=== PATIENT | male | born 1950 | race Two or more races ===

== ENCOUNTER 2020-02-12 12:34 | Emergency (ER) | payer MEDICARE, MEDICAID ==
[~2020-02-12] VITALS: Ht 157.5 cm; Wt 95.3 kg
[~2020-02-12 12:34] MED LIST: ALPR0.5T7 PO; GABA300C10 PO; HYDR-4833 PO
[2020-02-12 13:18] VITALS: BP 157/59
[2020-02-12] MEDS ORDERED: HYDROcodone-ACET 5/325MG TAB PO ONE (13:45)
== END 2020-02-12 14:34 | disposition home or self-care (01) ==
LOC: ER 12:34
DX: S42.291A Other displaced fracture of upper end of right humerus, initial encounter for closed fracture (principal); M13.841 Other specified arthritis, right hand; E11.22 Type 2 diabetes mellitus with diabetic chronic kidney disease; I12.0 Hypertensive chronic kidney disease with stage 5 chronic kidney disease or end stage renal disease; N18.6 End stage renal disease; E78.5 Hyperlipidemia, unspecified; W01.0XXA Fall on same level from slipping, tripping and stumbling without subsequent striking against object, initial encounter; Y93.89 Activity, other specified; Y92.89 Other specified places as the place of occurrence of the external cause; Y99.8 Other external cause status
CPT/HCPCS: 29105; 73060; 73130

== ENCOUNTER 2020-03-20 12:41 | Inpatient (IN) | payer MEDICARE, MEDICAID ==
[~2020-03-20] VITALS: Ht 175.3 cm; Wt 104.8 kg
[2020-03-20] MEDS ORDERED: cloNIDine HCL 0.1 MG TAB PO ONE (13:30)
[2020-03-20] MEDS ORDERED: ONDANSETRON HCL 4 MG/2 ML VIAL IV ONE (13:45)
[2020-03-20] MEDS ORDERED: MORPHINE SULFATE 4 MG/ML SYR/VIAL IV ONE (13:45)
[2020-03-20] MEDS ORDERED: hydrALAZINE HCL 20 MG/ML VL IV ONE (13:45)
[2020-03-20 13:55] LABS: Hemoglobin 11.3 g/dL (13.5-17.5); Mean Corpuscular Hemoglobin 31.5 pg (28.0-32.0); Mean Corpuscular Hgb Conc. 32.3 g/dL (32.0-36.0); Mean Corpuscular Volume 97.4 fL (80.0-100.0); Platelet Count (auto) 193 10^3/uL (140-450); Red Cell Distribution Width 19.4 % (11.8-14.3); White Blood Cell 4.4 10^3/uL (4.4-10.8)
[2020-03-20 14:03] LABS: Basophils % (manual) 0 (0.0-2.0); Blast Cells 0; Metamyelocytes % 0; Myelocytes % 0; Promyelocytes % 0; Reactive Lymphocytes 0
[2020-03-20 14:15] LABS: Albumin 3.7 g/dL (3.4-5.0); Calcium 7.6 mg/dL (8.5-10.1)
[2020-03-20 14:19] LABS: Bilirubin, Total 0.7 mg/dL (0.2-1.0); Total Protein 6.9 g/dL (6.4-8.2)
[2020-03-20 14:28] LABS: Band Neutrophils % (manual) 2; Eosinophils % (manual) 3 (0-7); Lymphocytes % (manual) 18 (10.0-50.0); Monocytes % (manual) 6 (0-12)
[2020-03-20 14:35] LABS: BUN/Creatinine Ratio 10.7
[2020-03-20 14:44] LABS: Potassium 7.3 mmol/L (3.5-5.1)
[2020-03-20] MEDS ORDERED: InsuLIN REG 1unit/0.01ml Soln (100units/ml) IV ONE (15:00)
[2020-03-20] MEDS ORDERED: DEXTROSE (50%) 50ML SYRG IV ONE (15:00)
[2020-03-20] MEDS ORDERED: SODIUM BICARBONATE 8.4% INJ 50ML SYRINGE IV ONE (15:00)
[2020-03-20] MEDS ORDERED: SODIUM ZIRCONIUM CYCL 10 GM PAK PO ONE (15:00)
[2020-03-20] MEDS ORDERED: ALBUTEROL SULF 2.5 MG/0.5ML(0.5%) NEB SOLN NEB ONE (15:00)
[2020-03-20] MEDS ORDERED: CALCIUM GLUC 4.65meq/50ml D5AE 50 ML IV ONE (15:00)
[2020-03-20] MEDS ORDERED: NITROGLYCERIN 0.4 MG SL TAB SL PRN (16:00)
[2020-03-20] MEDS ORDERED: ONDANSETRON HCL 4 MG/2 ML VIAL IV PRN (16:00)
[2020-03-20] MEDS ORDERED: MORPHINE SULF INJ 2 MG/ML SYRINGE 1ML IV PRN ×2 (16:00)
[2020-03-20] MEDS ORDERED: FUROSEMIDE 40 MG/4 ML VIAL IV SCH ×2 (17:00→18:00)
[2020-03-20] MEDS ORDERED: SODIUM ZIRCONIUM CYCL 10 GM PAK PO SCH (17:00)
[2020-03-20] MEDS ORDERED: SODIUM CHL 0.9% 1000 ML BAG XX ONE ×2 (17:00→19:30)
[2020-03-20] MEDS: SODIUM ZIRCONIUM CYCL 10 GM PAK PO SCH (23:24)
[2020-03-21] MEDS ORDERED: PNEUMOCOCCAL VACC POLYS 25 MCG/0.5 ML VIAL IM ONE (01:30)
[2020-03-21] MEDS ORDERED: ACETAMINOPHEN 500 MG TAB PO PRN (02:45)
[2020-03-21] MEDS ORDERED: diphenhdrAMINE HCL 25 MG CAP PO PRN (02:45)
[2020-03-21] MEDS: SODIUM ZIRCONIUM CYCL 10 GM PAK PO SCH ×2 (04:30→14:38)
[2020-03-21 05:30] VITALS: BP 154/85
[2020-03-21] MEDS ORDERED: FUROSEMIDE 40 MG/4 ML VIAL IV SCH (06:00)
[2020-03-21 09:03] VITALS: BP 141/55
[2020-03-21 09:55] LABS: Albumin 3.1 g/dL (3.4-5.0); Calcium 7.4 mg/dL (8.5-10.1); Potassium 5.5 mmol/L (3.5-5.1)
[2020-03-21 09:57] LABS: BUN/Creatinine Ratio 9.2
[2020-03-21 10:00] LABS: Bilirubin, Total 0.9 mg/dL (0.2-1.0); Total Protein 6.4 g/dL (6.4-8.2)
[2020-03-21] MEDS ORDERED: SEVELAMER 800 MG TAB PO SCH (12:00)
[2020-03-21 12:45] VITALS: BP 142/52
[2020-03-21 13:26] LABS: Hematocrit 33.4 % (41.0-53.0); Mean Corpuscular Volume 96.9 fL (80.0-100.0); Platelet Count (auto) 169 10^3/uL (140-450); Red Blood Cells 3.45 10^6/uL (4.5-5.90); Red Cell Distribution Width 19.7 % (11.8-14.3); White Blood Cell 3.9 10^3/uL (4.4-10.8)
[2020-03-21 13:27] LABS: Basophils % (manual) 0 (0.0-2.0); Myelocytes % 0
[2020-03-21 13:28] LABS: Blast Cells 0; Promyelocytes % 0; Reactive Lymphocytes 0
[2020-03-21 13:41] LABS: Band Neutrophils % (manual) 1; Eosinophils % (manual) 1 (0-7); Lymphocytes % (manual) 21 (10.0-50.0); Metamyelocytes % 1; Monocytes % (manual) 12 (0-12)
[2020-03-21 17:00] VITALS: BP 155/64
[2020-03-22] MEDS ORDERED: SODIUM CHL 0.9% 1000 ML BAG XX ONE (07:00)
== END 2020-03-21 18:12 | disposition home or self-care (01) | DRG 640 ==
LOC: ER 12:41 → TELE 12:42 → TELE-WESTW 23:33
PROVIDERS: ADMIT Internal Medicine; ATTEND Internal Medicine
PROC: 5A1D70Z Performance of Urinary Filtration, Intermittent, Less than 6 Hours Per Day (ICD-10-PCS; principal; 2020-03-20)
DX: E87.70 Fluid overload, unspecified (principal); N18.6 End stage renal disease; I12.0 Hypertensive chronic kidney disease with stage 5 chronic kidney disease or end stage renal disease; E87.5 Hyperkalemia; Z99.2 Dependence on renal dialysis; D63.1 Anemia in chronic kidney disease; E11.22 Type 2 diabetes mellitus with diabetic chronic kidney disease; E78.5 Hyperlipidemia, unspecified; E83.39 Other disorders of phosphorus metabolism; E66.9 Obesity, unspecified; Z82.49 Family history of ischemic heart disease and other diseases of the circulatory system; Z83.3 Family history of diabetes mellitus; Z68.34 Body mass index [BMI] 34.0-34.9, adult
CPT/HCPCS: 36415; 71045; 73030; 80053; 82306; 82962; 83880; 83970; 84100; 84132; 84484; 85007; 85027; 87081; 90935; 93005; 93925; 94640; G0378; J0610; J1642; J1815; J2405

== ENCOUNTER 2020-05-23 11:22 | Inpatient (IN) | payer MEDICARE, MEDICAID ==
[~2020-05-23] VITALS: Ht 175.3 cm; Wt 83.9 kg
[2020-05-23] MEDS ORDERED: CLINDAMYCIN 600MG IV 50 ML IV ONE (11:45)
[2020-05-23 11:53] LABS: Basophils # (auto) 0 10 ^3/uL (0-0.2); Basophils % (auto) 0.4 % (0.0-2.0); Eosinophils # (auto) 0.1 10 ^3/uL (0-0.8); Eosinophils % (auto) 0.7 % (0.0-7.0); Hematocrit 36.5 % (41.0-53.0); Hemoglobin 11.9 g/dL (13.5-17.5); Lymphocytes # (auto) 0.6 10 ^3/uL (0.4-5.4); Lymphocytes % (auto) 6.5 % (10.0-50.0); Mean Corpuscular Hemoglobin 31.7 pg (28.0-32.0); Mean Corpuscular Hgb Conc. 32.6 g/dL (32.0-36.0); Monocytes % (auto) 11.2 % (0.0-12.0); Neutrophils # (auto) 7.3 10 ^3/uL (1.6-8.6); Neutrophils % (auto) 81.2 % (37.0-80.0); Platelet Count (auto) 279 10^3/uL (140-450); Red Blood Cells 3.77 10^6/uL (4.5-5.90); Red Cell Distribution Width 15.3 % (11.8-14.3)
[2020-05-23 12:07] LABS: Albumin 2.5 g/dL (3.4-5.0); Calcium 7.9 mg/dL (8.5-10.1); INR 1.14 (0.9-1.15); Partial Thromboplastin Time 27.5 sec (23.0-31.2); Potassium 4.5 mmol/L (3.5-5.1)
[2020-05-23 12:11] LABS: BUN/Creatinine Ratio 5.4; Bilirubin, Total 0.6 mg/dL (0.2-1.0); Total Protein 6.8 g/dL (6.4-8.2)
[2020-05-23] MEDS ORDERED: MORPHINE SULF INJ 2 MG/ML SYRINGE 1ML IV PRN ×2 (13:00→13:15)
[2020-05-23] MEDS ORDERED: NITROGLYCERIN 0.4 MG SL TAB SL PRN (13:00)
[2020-05-23] MEDS ORDERED: SODIUM CHLORIDE 0.9% 1,000 ML IV SCH (13:15)
[2020-05-23] MEDS ORDERED: DOCUSATE SOD 100 MG CAP PO PRN (13:15)
[2020-05-23] MEDS ORDERED: ENOXAPARIN SOD 30 MG/0.3 ML SYRINGE SC ONE (13:45)
[2020-05-23] MEDS ORDERED: PARO10TA93 PO (14:27)
[2020-05-23] MEDS ORDERED: DOXY100C2 PO (14:27)
[2020-05-23] MEDS ORDERED: DIPH2.5T73 PO (14:27)
[2020-05-23] MEDS ORDERED: SEVE800T8 PO (14:33)
[2020-05-23] MEDS ORDERED: TRAM50TA2 PO (14:44)
[2020-05-23] MEDS ORDERED: CLON0.2T PO ×2 (14:46→14:47)
[2020-05-23] MEDS ORDERED: GABAPENTIN 300 MG CAP PO SCH (22:00)
[2020-05-24] VITALS: BP 111/56
--- NOTE | 2020-05-24 03:00 | NUR ---
paged hospitalist informing regarding patient's AMA
--- NOTE | 2020-05-24 03:05 | NUR ---
the patient went AMA stated he wanna go home and he does not want to get treatment anymore. Educated on the risk of going home without getting proper treatment, He refused the covid swab anymore and doesnt want to be in the floor in the first place. He signed the AMA form and wheeled him down outside the ER lobby. We called his son Ady and gonna pick him up in 1/2hr. CN is aware
--- NOTE | 2020-05-24 03:29 | NUR ---
spoke to household appliance installer regarding patient's AMA
[2020-05-24] MEDS ORDERED: PANTOPRAZOLE 40 MG/10 ML VIAL INJ IV SCH (10:00)
[2020-05-24] MEDS ORDERED: ALPRAZolam 0.5 MG TAB PO SCH (10:00)
== END 2020-05-24 02:45 | disposition left against medical advice (07) | DRG 638 ==
LOC: ER 11:22 → OVERFLOW 11:23 → EAST 05-24 01:00
DX: E11.69 Type 2 diabetes mellitus with other specified complication (principal); E87.1 Hypo-osmolality and hyponatremia; I12.0 Hypertensive chronic kidney disease with stage 5 chronic kidney disease or end stage renal disease; L03.115 Cellulitis of right lower limb; M86.8X7 Other osteomyelitis, ankle and foot; E11.22 Type 2 diabetes mellitus with diabetic chronic kidney disease; E11.65 Type 2 diabetes mellitus with hyperglycemia; Z20.828 Contact with and (suspected) exposure to other viral communicable diseases; Z53.29 Procedure and treatment not carried out because of patient's decision for other reasons; D64.9 Anemia, unspecified; E87.8 Other disorders of electrolyte and fluid balance, not elsewhere classified; F41.9 Anxiety disorder, unspecified; N18.6 End stage renal disease; Z82.49 Family history of ischemic heart disease and other diseases of the circulatory system; Z83.3 Family history of diabetes mellitus; Z99.2 Dependence on renal dialysis
CPT/HCPCS: 36415; 71045; 73700; 80053; 85025; 85610; 85652; 85730; 87426; 93005; G0378; J3490

== ENCOUNTER 2020-05-24 19:57 | Inpatient (IN) | payer MEDICARE, MEDICAID ==
[~2020-05-24] VITALS: Ht 177.8 cm; Wt 93.7 kg
[~2020-05-24 19:57] MED LIST changes: -ALPR0.5T7 PO; +CLON0.2T PO; +DIPH2.5T73 PO; +DOXY100C2 PO; -HYDR-4833 PO; +PARO10TA93 PO; +SEVE800T8 PO; +TRAM50TA2 PO
[2020-05-24] MEDS ORDERED: ACETAMINOPHEN 325 MG TAB PO ONE (20:30)
[2020-05-24] MEDS ORDERED: ONDANSETRON HCL 4 MG/2 ML VIAL IV ONE (21:00)
[2020-05-24] MEDS ORDERED: MORPHINE SULFATE 4 MG/ML SYR/VIAL IV ONE (21:00)
[2020-05-24 21:02] LABS: Basophils # (auto) 0.1 10 ^3/uL (0-0.2); Basophils % (auto) 0.7 % (0.0-2.0); Eosinophils # (auto) 0 10 ^3/uL (0-0.8); Eosinophils % (auto) 0.3 % (0.0-7.0); Hematocrit 36.6 % (41.0-53.0); Hemoglobin 12.1 g/dL (13.5-17.5); Lymphocytes # (auto) 0.5 10 ^3/uL (0.4-5.4); Lymphocytes % (auto) 4.1 % (10.0-50.0); Mean Corpuscular Hemoglobin 31.8 pg (28.0-32.0); Mean Corpuscular Volume 96.2 fL (80.0-100.0); Monocytes # (auto) 1.4 10 ^3/uL (0-1.3); Monocytes % (auto) 10.3 % (0.0-12.0); Neutrophils # (auto) 11.3 10 ^3/uL (1.6-8.6); Neutrophils % (auto) 84.6 % (37.0-80.0); Platelet Count (auto) 284 10^3/uL (140-450); Red Cell Distribution Width 15.5 % (11.8-14.3); White Blood Cell 13.3 10^3/uL (4.4-10.8)
[2020-05-24 21:17] LABS: Albumin 2.5 g/dL (3.4-5.0); Calcium 8.1 mg/dL (8.5-10.1); Potassium 5.1 mmol/L (3.5-5.1)
[2020-05-24 21:23] LABS: BUN/Creatinine Ratio 6.9; Bilirubin, Total 0.6 mg/dL (0.2-1.0)
[2020-05-24] MEDS ORDERED: VANCOMYCIN 1GM/250ML 250 ML IV ONE (23:00)
[2020-05-24] MEDS ORDERED: cefTRIAXone 1GM/50ML D5W 50 ML IV ONE (23:00)
[2020-05-25] MEDS ORDERED: VANCOMYCIN PER PHARMACY 0 MG IV SCH (02:30)
[2020-05-25] MEDS ORDERED: DEXTROSE (50%) 50ML SYRG IV PRN (02:30)
[2020-05-25] MEDS ORDERED: ONDANSETRON HCL 4 MG/2 ML VIAL IV PRN (02:30)
[2020-05-25] MEDS ORDERED: TEMAZEPAM 15 MG CAP PO PRN (02:30)
[2020-05-25] MEDS: PIPERACILLIN-TAZOB 2.25GM 50 ML IV SCH ×3 (06:21→21:50)
[2020-05-25] MEDS: InsuLIN REG 1unit/0.01ml Soln (100units/ml) SC SCH ×4 (07:00→21:49)
[2020-05-25] MEDS: ACCU-CHEK COMFORT CURVE STRIP VI SCH ×4 (07:13→21:49)
[2020-05-25] MEDS: SEVELAMER 800 MG TAB PO SCH ×3 (08:20→18:24)
[2020-05-25] MEDS: cloNIDine HCL 0.1 MG TAB PO SCH ×2 (08:20→09:42)
[2020-05-25] MEDS: PANTOPRAZOLE 40 MG TAB PO SCH (08:20)
--- NOTE | 2020-05-25 14:55 | NUR ---
MS admit from ER JAN FARRELL admitted to tele/MS after SBAR received. AAOX4, breathing even nonlabored, S1, S2, karlos lungs clear to auscultation. Able to walk with standby assist. Right fifth toe cellulitis. Wound picture taken. Patient oriented to Marcos Marinelli RN primary RN, unit, room, bed, and unit policies regarding patient care and visiting hours. Patient weighed by bedscale and encouraged to call if they need something. All questions and concerns addressed, patient verbalized understanding. Bed locked in the lowest position, call light within easy reach, will continue care.
[2020-05-25 15:02] VITALS: BP 150/45
[2020-05-25 17:00] VITALS: BP 129/41
[2020-05-25] MEDS ORDERED: VANCOMYCIN 1GM/250ML 250 ML IV ONE (17:00)
[2020-05-25] MEDS ORDERED: VANCOMYCIN 500 MG in D5W 5% 100 ML IV ONE (17:00)
--- NOTE | 2020-05-25 19:30 | NUR ---
Opening Shift Note Assumed care of patient, awake and alert x4. No S/S of distress/SOB or pain. Dressing to right foot is C/D/I. Call light is within reach, side rails up x2, bed is in the lowest position. Instructed on POC and to call for assist PRN, will continue to monitor for changes Q1hr and PRN.
[2020-05-25 21:27] VITALS: BP 120/43
[2020-05-26 05:00] VITALS: BP 133/72
[2020-05-26 06:06] LABS: Basophils # (auto) 0.1 10 ^3/uL (0-0.2); Basophils % (auto) 0.5 % (0.0-2.0); Eosinophils # (auto) 0.2 10 ^3/uL (0-0.8); Eosinophils % (auto) 1.3 % (0.0-7.0); Hematocrit 33.6 % (41.0-53.0); Hemoglobin 11.1 g/dL (13.5-17.5); Lymphocytes # (auto) 0.8 10 ^3/uL (0.4-5.4); Lymphocytes % (auto) 5.9 % (10.0-50.0); Mean Corpuscular Hemoglobin 31.5 pg (28.0-32.0); Mean Corpuscular Hgb Conc. 33.1 g/dL (32.0-36.0); Mean Corpuscular Volume 95.3 fL (80.0-100.0); Monocytes # (auto) 1.6 10 ^3/uL (0-1.3); Monocytes % (auto) 10.8 % (0.0-12.0); Neutrophils # (auto) 11.8 10 ^3/uL (1.6-8.6); Neutrophils % (auto) 81.5 % (37.0-80.0); Nucleated Red Blood Cells % 0.1 %; Platelet Count (auto) 317 10^3/uL (140-450); Red Blood Cells 3.53 10^6/uL (4.5-5.90); Red Cell Distribution Width 15.4 % (11.8-14.3); White Blood Cell 14.5 10^3/uL (4.4-10.8)
[2020-05-26 06:25] LABS: BUN/Creatinine Ratio 7.7; Calcium 7.7 mg/dL (8.5-10.1); Potassium 5.1 mmol/L (3.5-5.1)
--- NOTE | 2020-05-26 06:35 | NUR ---
Critical lab values received Bun/Creatinine Bun- 82 Creatinine- 10.6 Hospitalist Kumar ROTH made aware of lab results at 06:45, no new orders received, will continue to monitor.
[2020-05-26] MEDS: PIPERACILLIN-TAZOB 2.25GM 50 ML IV SCH ×3 (06:40→22:29)
[2020-05-26] MEDS: InsuLIN REG 1unit/0.01ml Soln (100units/ml) SC SCH ×4 (06:40→21:29)
[2020-05-26] MEDS: ACCU-CHEK COMFORT CURVE STRIP VI SCH ×4 (06:40→21:12)
--- NOTE | 2020-05-26 06:41 | NUR ---
MRSA nares collected and sent to lab via bullet system.
[2020-05-26] MEDS ORDERED: SODIUM CHL 0.9% 1000 ML BAG XX ONE (07:30)
--- NOTE | 2020-05-26 07:30 | NUR ---
Opening Shift Note Assuming care of patient at this time. Patient is awake and alert. Patient does complain of pain to his right foot, 6/10. Will medicate according to doctor's orders. Patient shows no signs or symptoms of distress or shortness of breath. Bed is locked and lowered with side rails up x2. Instructed patient on the plan of care for today and to call for assistance as needed. Call light within reach. Will continue to round hourly and as needed.
[2020-05-26] MEDS: SEVELAMER 800 MG TAB PO SCH ×3 (08:32→17:40)
[2020-05-26 08:52] LABS: Urine Bacteria FEW /hpf (None Seen); Urine Blood TRACE /uL (Negative); Urine Specific Gravity 1.017 (1.001-1.035); Urine WBC 5 /hpf (0 - 3)
[2020-05-26] MEDS: PANTOPRAZOLE 40 MG TAB PO SCH (10:31)
[2020-05-26] MEDS: cloNIDine HCL 0.1 MG TAB PO SCH (10:31)
--- NOTE | 2020-05-26 10:50 | NUR ---
Podiatry Podiatry MD, Dr. Price, at nurses' station. aware that patient will be going to have lower extremity angiogram later today. Surgery will be scheduled for Friday morning with Dr. Price at approximately 0800.
--- NOTE | 2020-05-26 11:43 | NUR ---
WOUND CARE NOTE: WOUND CARE IN TO SEE PATIENT PER WOUND CARE REQUEST. PATIENT ADMITTED TO [facility] FOR RIGHT FOOT OSTEOMYELITIS WITH CELLULITIS. BEDSIDE NURSE NOTED SKIN INTEGRITY ISSUE UPON ADMISSION. PHOTOGRAPH TAKEN AT THAT TIME. PATIENT HAS MULTIPLE WOUNDS TO RIGHT FOOT 5TH TOE. TOE CLEANSED WITH BETADINE AND LEFT OPEN TO AIR. PATIENT SCHEDULED FOR AMPUTATION OF DIGIT WITH PRINTING PRESS OPERATOR DR. WALL ON FRIDAY (05/28/20). RECOMMEND: CLEANSE TOE WITH BETADINE BID/PRN UNTIL SURGERY DATE. REDISTRIBUTE PRESSURE UTILIZING PILLOWS AND WEDGES. SKIN/WOUND CARE PLAN. CONTINUED MONITORING BY WOUND CARE TEAM. Addendum: 05/26/20 at 1514 by REGINA RESENDEZ RN RN Amended: Links added.
[2020-05-26 12:38] VITALS: BP 119/58
[2020-05-26] MEDS ORDERED: IOHEXOL 350 MG/ML 100ML IJ ONE (13:26)
[2020-05-26 13:27] LABS: INR 1.13 (0.9-1.15)
[2020-05-26] MEDS ORDERED: LIDOCAINE 2%HCL (LOCAL ANESTH.) INJ 20ML MDV ONE (13:27)
[2020-05-26] MEDS ORDERED: SODIUM CHL 0.9% 0 ML ONE (13:39)
[2020-05-26] MEDS ORDERED: fentaNYL CITRATE 100 MCG/2 ML VL ONE (13:39)
[2020-05-26] MEDS ORDERED: ANGIOMAX 250 MG VIAL IV ONE (13:39)
[2020-05-26] MEDS ORDERED: MIDAZOLAM HCL 1MG/1ML-2 ML VIAL ONE (13:39)
--- NOTE | 2020-05-26 15:20 | NUR ---
Back on Unit Patient has returned from lab rn at this time. Patient is aware of up time. Instructed patient to stay in bed until up time.
--- NOTE | 2020-05-26 15:25 | NUR ---
Site Patient's site to the left groin is soft and tender to touch. Dressing is clean, dry, and intact.
--- NOTE | 2020-05-26 16:00 | NUR ---
Dialysis sewing machine operator plastic zipper at bedside. Dialysis to start shortly. Notified sewing machine operator plastic zipper that patient may not get up until 1645.
[2020-05-26 16:20] VITALS: BP 141/76
--- NOTE | 2020-05-26 16:30 | NUR ---
Call to pharmacy Call to pharmacy at this time. Patient has just begun dialysis. Vancomycin will need to be rescheduled. Pharmacists acknowledges and will reschedule accordingly.
[2020-05-26] MEDS ORDERED: VANCOMYCIN 500 MG in D5W 5% 100 ML IV ONE (17:00)
--- NOTE | 2020-05-26 18:21 | NUR ---
Wound Care Wound care done to patient's right foot/toe at this time according to doctor's orders. Patient tolerated well. Patient still undergoing dialysis.
--- NOTE | 2020-05-26 19:22 | NUR ---
Closing Shift Note Patient resting in bed. Dialysis still in progress. No distress noted. Report given. Will endorse care to the police shift commander RN.
--- NOTE | 2020-05-26 19:45 | NUR ---
WOUNDCARE APPLIED BETADINE TO RIGHT 5TH TOE AND RIGHT GREAT TOE AND LEFT CARLOS. INFORMED PATIENT THAT IS THE WOUNDCARE TREATMENT ORDERED PER DOCTOR.
[2020-05-26] MEDS ORDERED: VANCOMYCIN 1GM/250ML 250 ML IV ONE (20:00)
[2020-05-26] MEDS ORDERED: EPOETIN ALFA 10,000 UNIT/1 ML VIAL SC ONE (21:00)
[2020-05-26] MEDS: ACETAMINOPHEN 325 MG TAB PO PRN (21:13)
[2020-05-26 21:55] VITALS: BP 129/68
--- NOTE | 2020-05-26 22:17 | NUR ---
WOUND CARE PATIENT UP OUT OF BED AND USING URINAL. PATIENT WOUND TO RIGHT FOOT 5TH DIGIT OPEN AND DRAINING. APPLIED BETADINE COVERED WITH OPTIFOAM DRESSING WRAPPED IN KERLIX AND STOCKINETTE TO SECURE DRESSING.
[2020-05-27 05:07] VITALS: BP 143/70
[2020-05-27] MEDS: PIPERACILLIN-TAZOB 2.25GM 50 ML IV SCH ×3 (05:45→22:12)
[2020-05-27] MEDS: InsuLIN REG 1unit/0.01ml Soln (100units/ml) SC SCH ×4 (06:46→22:44)
[2020-05-27] MEDS: ACCU-CHEK COMFORT CURVE STRIP VI SCH ×4 (06:46→22:44)
[2020-05-27 07:47] LABS: Basophils # (auto) 0.1 10 ^3/uL (0-0.2); Basophils % (auto) 0.5 % (0.0-2.0); Eosinophils # (auto) 0.2 10 ^3/uL (0-0.8); Eosinophils % (auto) 1.4 % (0.0-7.0); Hematocrit 34.7 % (41.0-53.0); Hemoglobin 11.4 g/dL (13.5-17.5); Lymphocytes # (auto) 0.7 10 ^3/uL (0.4-5.4); Lymphocytes % (auto) 5.5 % (10.0-50.0); Mean Corpuscular Hemoglobin 31.5 pg (28.0-32.0); Mean Corpuscular Hgb Conc. 32.8 g/dL (32.0-36.0); Monocytes # (auto) 1.4 10 ^3/uL (0-1.3); Monocytes % (auto) 11.7 % (0.0-12.0); Neutrophils # (auto) 9.9 10 ^3/uL (1.6-8.6); Neutrophils % (auto) 80.9 % (37.0-80.0); Platelet Count (auto) 332 10^3/uL (140-450); Red Blood Cells 3.61 10^6/uL (4.5-5.90); Red Cell Distribution Width 14.9 % (11.8-14.3); White Blood Cell 12.2 10^3/uL (4.4-10.8)
[2020-05-27 08:04] LABS: BUN/Creatinine Ratio 6.8; Calcium 8.3 mg/dL (8.5-10.1); Potassium 4.2 mmol/L (3.5-5.1)
[2020-05-27] MEDS: SEVELAMER 800 MG TAB PO SCH ×3 (08:25→17:34)
[2020-05-27 09:00] VITALS: BP 125/69
[2020-05-27] MEDS: cloNIDine HCL 0.1 MG TAB PO SCH (09:54)
[2020-05-27] MEDS: PANTOPRAZOLE 40 MG TAB PO SCH (09:54)
[2020-05-27 13:00] VITALS: BP 106/49
--- NOTE | 2020-05-27 14:31 | NUR ---
Nutrition Assessment Note please see attached link for complete assessment Est Energy needs BW 91 [id number] kcals (27-30kcal/kgBW), Est Protein needs: 109-118 gms/day (1.2-1.3 gm/kgBW r/t HD). Will continue to monitor and reassess prn. Addendum: 05/27/20 at [address] Amended: Links added.
[2020-05-27 17:00] VITALS: BP 138/64
[2020-05-27] MEDS: ACETAMINOPHEN 325 MG TAB PO PRN (17:35)
--- NOTE | 2020-05-27 19:25 | NUR ---
Received report from the Day Shift RN. Initial assessment done.
--- NOTE | 2020-05-27 20:00 | NUR ---
Complete assessment done.
[2020-05-27 22:00] VITALS: BP 136/57
--- NOTE | 2020-05-27 22:12 | NUR ---
Zosyn IV antibiotic given/administered @ this time. Pt. made aware of the use and benefits of this antibiotic. Pt. verbalized understanding.
--- NOTE | 2020-05-27 22:44 | NUR ---
Accucheck taken and result is 118 , No coverage for Regular Human Insulin needed. Pt. made awaree to be on NPO post MN for the Surgery of the Fifth Right Toe and its metatarsal head with consent signed placed in the pt.'s chart. Pt. given snacks @ like sandwich and jello. Pt. instructed that its still okay to eat before midnight and then will be on NPO Post MN.
--- NOTE | 2020-05-28 00:10 | NUR ---
Charge Nurse Charlene informed/notified assigned RN. Jha that pt. needs Covid Swab test before surgery today. Called and notified Lab. Personnel to send Covid Swab kit to test pt. through nasal. Lab. Personnel tube the Swab test kit @ the Central Wing.
--- NOTE | 2020-05-28 01:00 | NUR ---
Pt. provided explanation that the hospital needed the Covid Swab test in which the sample to be taken from the nasal area. persuaded and encouraged pt. to have the sample taken from his nose. Pt. refused to have the Covid test done. Pt. refused 3 times already and still refused his sample to be collected even persuaded 3 times. Will follow-up this procedure in some other time during the shift. Pt. kept safe and school crossing guard bed. Encouraged pt. to go back to sleep and pt. returned to sleep in a while. Call-light @ the bedside within reach and keep room environment quiet or free from unecessary noise.
--- NOTE | 2020-05-28 02:00 | NUR ---
Pt. calm, quiet and sleeping undisturbed. No s/s of pain or discomfort. Kept pt. NPO for Right Toe Amputation procedure
--- NOTE | 2020-05-28 04:00 | NUR ---
Pt. asleep. Maintained a safe and quiet environment. Pt. still on NPO.
[2020-05-28 05:00] VITALS: BP 125/61
--- NOTE | 2020-05-28 05:00 | NUR ---
Pre-op checklist started by assigned RN. Jha. See Pt.'s Chart.
[2020-05-28] MEDS: PIPERACILLIN-TAZOB 2.25GM 50 ML IV SCH ×3 (06:02→21:53)
--- NOTE | 2020-05-28 06:02 | NUR ---
Zosyn IV antibiotic is due and was administered @ this time. Pt. give explanation of the use of IV med. Pt. Verbalized understanding. Encouraged pt. to have the Covid swab test from his nasal, pt. still refused this procedure. Will retry the next time. Signed: 05/28/20 at 0728 by DERIC SANCHEZ RN RN
--- NOTE | 2020-05-28 06:43 | NUR ---
Accucheck taken with result of BS = 106 , No coverage for Regular human Insulin needed. Pt. still refused to have the Covid swab test from his nose.
[2020-05-28] MEDS: ACCU-CHEK COMFORT CURVE STRIP VI SCH ×4 (06:51→22:00)
[2020-05-28] MEDS: InsuLIN REG 1unit/0.01ml Soln (100units/ml) SC SCH ×4 (06:51→22:00)
[2020-05-28 07:06] LABS: Basophils # (auto) 0.1 10 ^3/uL (0-0.2); Basophils % (auto) 0.6 % (0.0-2.0); Eosinophils # (auto) 0.2 10 ^3/uL (0-0.8); Eosinophils % (auto) 1.2 % (0.0-7.0); Hematocrit 33.9 % (41.0-53.0); Hemoglobin 11.5 g/dL (13.5-17.5); Lymphocytes # (auto) 0.8 10 ^3/uL (0.4-5.4); Lymphocytes % (auto) 5.6 % (10.0-50.0); Mean Corpuscular Hgb Conc. 33.8 g/dL (32.0-36.0); Mean Corpuscular Volume 94.8 fL (80.0-100.0); Monocytes # (auto) 1.6 10 ^3/uL (0-1.3); Monocytes % (auto) 12.1 % (0.0-12.0); Neutrophils # (auto) 10.9 10 ^3/uL (1.6-8.6); Neutrophils % (auto) 80.5 % (37.0-80.0); Platelet Count (auto) 342 10^3/uL (140-450); Red Blood Cells 3.58 10^6/uL (4.5-5.90); Red Cell Distribution Width 15.3 % (11.8-14.3); White Blood Cell 13.5 10^3/uL (4.4-10.8)
[2020-05-28 07:27] LABS: BUN/Creatinine Ratio 6.8; Calcium 8.4 mg/dL (8.5-10.1); Potassium 4.8 mmol/L (3.5-5.1)
[2020-05-28 07:40] LABS: INR 1.12 (0.9-1.15); Partial Thromboplastin Time 25.7 sec (23.0-31.2)
[2020-05-28] MEDS: SEVELAMER 800 MG TAB PO SCH ×3 (08:00→17:47)
[2020-05-28] MEDS ORDERED: ceFAZolin 1GM VL ONE (08:30)
[2020-05-28] MEDS ORDERED: ROPIVACAINE 0.5% (5MG/ML) 20ML AMPULE IJ ONE (08:31)
--- NOTE | 2020-05-28 08:48 | NUR ---
COVID 19 ANTIGEN EUNICE SWAB WALKED DOWN TO LAB PER ORDER.
[2020-05-28 09:00] VITALS: BP 139/83
--- NOTE | 2020-05-28 09:30 | NUR ---
IV insertion IV access obtained, via clean sterile technique by inserting 22 gauge catheter at RIGHT AC after 4 attempts. IV secured properly. No trauma to site. Patient tolerated well.
--- NOTE | 2020-05-28 09:40 | NUR ---
PATIENT TAKEN TO OR FOR SCHEDULED PROCEDURE WITH DR WALL
[2020-05-28] MEDS ORDERED: ceFAZolin 1GM/50ML 100 ML IV ONE (09:48)
[2020-05-28] MEDS ORDERED: MIDAZOLAM HCL 1MG/1ML-2 ML VIAL ONE (09:54)
[2020-05-28] MEDS ORDERED: LIDOCAINE 2% (LOCAL ANESTH.) PF 5ml SDV ONE (09:55)
[2020-05-28] MEDS ORDERED: PROPOFOL 10 MG/ML 20 ML IV ONE (09:55)
[2020-05-28] MEDS ORDERED: fentaNYL CITRATE 100 MCG/2 ML VL ONE (10:10)
[2020-05-28] MEDS ORDERED: KETAMINE HCL 10 ML ONE (10:13)
[2020-05-28] MEDS ORDERED: NEOMYCIN-BACITRACIN-POLYM 15GM TOP OINT TOP ONE (10:26)
[2020-05-28] MEDS ORDERED: HYDROmorphone HCL 2 MG/ML VL IV PRN (11:00)
[2020-05-28] MEDS ORDERED: ONDANSETRON HCL 4 MG/2 ML VIAL IV PRN (11:00)
[2020-05-28] MEDS ORDERED: ACCU-CHEK COMFORT CURVE STRIP VI ONE (11:00)
--- NOTE | 2020-05-28 11:20 | NUR ---
PATIENT BACK IN ROOM FROM OR, S/P RIGHT TOE AMPUTATION. PATIENT DENIES PAIN AT THIS TIME, RIGHT FOOT IS DRESSED WITH GAUZE AND KERLIX, SURGICAL BOOT IN PLACE AND SITE DRY AND INTACT. WILL CONTINUE TO MONITOR.
[2020-05-28] MEDS: cloNIDine HCL 0.1 MG TAB PO SCH (11:43)
[2020-05-28] MEDS: PANTOPRAZOLE 40 MG TAB PO SCH (11:43)
[2020-05-28] MEDS: HYDROcodone-ACET 5/325MG TAB PO PRN ×2 (12:15→21:53)
[2020-05-28 13:00] VITALS: BP 141/66
[2020-05-28 16:52] VITALS: BP 133/65
--- NOTE | 2020-05-28 19:30 | NUR ---
Opening Shift Note Assumed care of patient, awake and alert. No S/S of distress/SOB or pain. Instructed on POC and to call for assist PRN, will continue to monitor for changes Q1hr and PRN.
[2020-05-28 22:00] VITALS: BP 109/61
[2020-05-29 05:00] VITALS: BP 133/63
[2020-05-29] MEDS: PIPERACILLIN-TAZOB 2.25GM 50 ML IV SCH (06:36)
[2020-05-29] MEDS: ACCU-CHEK COMFORT CURVE STRIP VI SCH ×4 (06:36→22:00)
[2020-05-29] MEDS: InsuLIN REG 1unit/0.01ml Soln (100units/ml) SC SCH ×4 (06:43→22:00)
[2020-05-29] MEDS ORDERED: SODIUM CHL 0.9% 1000 ML BAG XX ONE (07:00)
--- NOTE | 2020-05-29 07:20 | NUR ---
plate and frame filter operator at bed side for treatment
[2020-05-29] MEDS: SEVELAMER 800 MG TAB PO SCH ×3 (08:00→18:00)
[2020-05-29] MEDS: HYDROcodone-ACET 5/325MG TAB PO PRN ×3 (08:30→21:28)
[2020-05-29 09:00] VITALS: BP 137/67
[2020-05-29 09:55] LABS: Basophils # (auto) 0.1 10 ^3/uL (0-0.2); Basophils % (auto) 0.6 % (0.0-2.0); Eosinophils # (auto) 0.2 10 ^3/uL (0-0.8); Eosinophils % (auto) 2.2 % (0.0-7.0); Hematocrit 37.1 % (41.0-53.0); Hemoglobin 12.1 g/dL (13.5-17.5); Lymphocytes # (auto) 0.6 10 ^3/uL (0.4-5.4); Lymphocytes % (auto) 5.4 % (10.0-50.0); Mean Corpuscular Hemoglobin 31.3 pg (28.0-32.0); Mean Corpuscular Hgb Conc. 32.7 g/dL (32.0-36.0); Mean Corpuscular Volume 95.7 fL (80.0-100.0); Monocytes # (auto) 1.5 10 ^3/uL (0-1.3); Monocytes % (auto) 13.2 % (0.0-12.0); Neutrophils # (auto) 8.8 10 ^3/uL (1.6-8.6); Neutrophils % (auto) 78.6 % (37.0-80.0); Platelet Count (auto) 363 10^3/uL (140-450); Red Blood Cells 3.88 10^6/uL (4.5-5.90); Red Cell Distribution Width 15.1 % (11.8-14.3); White Blood Cell 11.2 10^3/uL (4.4-10.8)
[2020-05-29] MEDS: PANTOPRAZOLE 40 MG TAB PO SCH (10:00)
[2020-05-29 10:16] LABS: Calcium 8.4 mg/dL (8.5-10.1); Potassium 3.9 mmol/L (3.5-5.1)
[2020-05-29 10:19] LABS: BUN/Creatinine Ratio 6.7
--- NOTE | 2020-05-29 11:22 | NUR ---
DIALYSIS TREATMENT COMPLETED. PATIENT SITTING UP IN BED WITH NO COMPLAINTS OF PAIN OR DISCOMFORT. WILL CONTINUE TO MONITOR.
[2020-05-29 12:28] VITALS: BP 117/85
[2020-05-29] MEDS: AMPICILLIN & SULBACTAM SODIUM 3 GM in SODIUM CHL 0.9% 100 ML IV SCH (13:13)
--- NOTE | 2020-05-29 16:20 | NUR ---
Midline RN at bed side
[2020-05-29 16:40] VITALS: BP 95/46
--- NOTE | 2020-05-29 16:40 | NUR ---
IV removal RAC IV not flushing. IV DC'd with clean sterile technique, catheter fully intact. Pressure dressing applied to site. Patient tolerated well. NOTE:
[2020-05-29 22:00] VITALS: BP 141/75
[2020-05-30 05:00] VITALS: BP 128/68
[2020-05-30] MEDS: ACCU-CHEK COMFORT CURVE STRIP VI SCH ×4 (06:40→22:00)
[2020-05-30] MEDS: InsuLIN REG 1unit/0.01ml Soln (100units/ml) SC SCH ×4 (06:41→22:00)
[2020-05-30 08:00] VITALS: BP 168/88
[2020-05-30] MEDS: SEVELAMER 800 MG TAB PO SCH ×3 (08:27→17:51)
[2020-05-30] MEDS: PANTOPRAZOLE 40 MG TAB PO SCH (09:32)
[2020-05-30] MEDS: HYDROcodone-ACET 5/325MG TAB PO PRN ×2 (09:39→22:44)
[2020-05-30] MEDS: AMPICILLIN & SULBACTAM SODIUM 3 GM in SODIUM CHL 0.9% 100 ML IV SCH (12:20)
[2020-05-30 12:33] VITALS: BP 162/68
--- NOTE | 2020-05-30 14:42 | NUR ---
SS consult for IV ABX therapy upon discharge. Pt is an alert and oriented scottish speaking male who resides with his spouse. Pt is primarily scottish speaking and his son, Ady Bradshaw jr. completed assessment with pt's permission. Pt will be returning home with spouse upon discharge and will continue dialysis at [facility]. Per son he does not know pt's primary and pt does not have any nurses coming to the home. Spouse is able and willing to assist with dispensing medication and pt will be discharged on tomorrow per Dr. Galeana. Pt's son to provide transportation but needs notice because he is in [place]( two hours away). Faxed clincial information to [facility] for antibiotics and nursing was outsourced to [facility]. Confirmed with [facility] ( [phone]) that medication would be delivered tomorrow evening and with [facility] ([phone]) that services would begin on . No further interventions at this time. Addendum: 05/30/20 at 1449 by RACHEL SAENZ Amended: Links added.
--- NOTE | 2020-05-30 15:24 | NUR ---
Nutrition Followup Notes Wt: 91.5 kg Unable to talk to pt as pt spoke no Uzbek. per records pt to have HD today. pt with no distress noted currently on CCHO 60 gm renal std diet with adequate PO of 75% x 6 per RN doc Est Energy needs BW 91 [id number] kcals (27-30kcal/kgBW), Est Protein needs: 109-118 gms/day (1.2-1.3 gm/kgBW r/t HD). Will continue to monitor and reassess prn. LABS: GLU 116 H CA 8.4 L, BUN 45 H CREAT 6.67 H GI: Pt had 1 BM today per RN doc BS: 18 mod risk Refer to wound assessment report for full details. PES: Altered nutrition related lab values r/t current chronic medical condition aeb elev RFT hypocalcemia hyperglycemia Comments: Continue to monitor pt po intake, labs, skin. F/u mod 3-5 days Rec: 1) refer to CDE on DC. 2) continue current plan of care. 3) consider nephrovite and Vit C bid
[2020-05-30 17:00] VITALS: BP 139/96
[2020-05-30 22:00] VITALS: BP 149/66
[2020-05-31 05:00] VITALS: BP 172/74
[2020-05-31] MEDS: ACCU-CHEK COMFORT CURVE STRIP VI SCH ×2 (07:00→11:51)
[2020-05-31] MEDS ORDERED: SODIUM CHL 0.9% 1000 ML BAG XX ONE (07:00)
[2020-05-31] MEDS: InsuLIN REG 1unit/0.01ml Soln (100units/ml) SC SCH ×2 (07:00→11:30)
--- NOTE | 2020-05-31 07:33 | NUR ---
Opening Shift Note Assumed care of patient from noc shift rn, awake and alert. Denies pain at this time, no S/S of distress/SOB. Instructed on POC and to call for assist PRN, will continue to monitor for changes Q1hr and PRN.
[2020-05-31 08:00] VITALS: BP 142/55
[2020-05-31 09:00] VITALS: BP 142/55
--- NOTE | 2020-05-31 09:58 | NUR ---
Dr. Galeana at bedside, discussed discharge plan with patient. Per MD, midline to remain in place for home antibiotic administration.
[2020-05-31] MEDS: SEVELAMER 800 MG TAB PO SCH ×2 (10:07→12:29)
[2020-05-31] MEDS: PANTOPRAZOLE 40 MG TAB PO SCH (10:08)
--- NOTE | 2020-05-31 10:59 | NUR ---
Confirmed that [facility] will be delivering the medication between 3 and 7pm today and that [facility] will start services tomorrow. Notified Desirae the covering nurse of the above and that son will be transporting pt home. Pt has had his dialysis treatment for the day and will need IV ABX dose today before discharge.
--- NOTE | 2020-05-31 11:10 | NUR ---
Spoke to Sherly Montague case management. [facility] will be delivering medications between 3-7pm, son will be transporting patient and [facility] service tomorrow.
[2020-05-31] MEDS: HYDROcodone-ACET 5/325MG TAB PO PRN (11:22)
[2020-05-31] MEDS: AMPICILLIN & SULBACTAM SODIUM 3 GM in SODIUM CHL 0.9% 100 ML IV SCH (12:30)
[2020-05-31 13:00] VITALS: BP 151/62
[2020-05-31 14:31] VITALS: BP 125/69
--- NOTE | 2020-05-31 16:44 | NUR ---
Patient is discharged at this time per MD's order. Discharge summary, follow up, and prescription provided. Patient verbalized understanding. Midline in place for administration of antibiotic at home.
== END 2020-05-31 16:44 | disposition home health service (06) | DRG 616 ==
LOC: EDBD 19:57 → ER 20:04 → OVERFLOW 20:05 → WEST WING 05-25 14:00
PROVIDERS: ADMIT Nurse Practitioner; ATTEND Internal Medicine
PROC: B41G1ZZ Fluoroscopy of Left Lower Extremity Arteries using Low Osmolar Contrast (ICD-10-PCS; principal; 2020-05-26)
PROC: B41F1ZZ Fluoroscopy of Right Lower Extremity Arteries using Low Osmolar Contrast (ICD-10-PCS; 2020-05-26)
PROC: 5A1D70Z Performance of Urinary Filtration, Intermittent, Less than 6 Hours Per Day (ICD-10-PCS; 2020-05-26)
PROC: 0Y6M0ZF Detachment at Right Foot, Partial 5th Ray, Open Approach (ICD-10-PCS; 2020-05-28)
PROC: 5A1D70Z Performance of Urinary Filtration, Intermittent, Less than 6 Hours Per Day (ICD-10-PCS; 2020-05-29)
PROC: 5A1D70Z Performance of Urinary Filtration, Intermittent, Less than 6 Hours Per Day (ICD-10-PCS; 2020-05-31)
DX: E11.69 Type 2 diabetes mellitus with other specified complication (principal); E43 Unspecified severe protein-calorie malnutrition; E11.52 Type 2 diabetes mellitus with diabetic peripheral angiopathy with gangrene; L03.115 Cellulitis of right lower limb; E87.1 Hypo-osmolality and hyponatremia; M86.8X7 Other osteomyelitis, ankle and foot; I96 Gangrene, not elsewhere classified; I12.0 Hypertensive chronic kidney disease with stage 5 chronic kidney disease or end stage renal disease; Z20.828 Contact with and (suspected) exposure to other viral communicable diseases; N18.6 End stage renal disease; D72.829 Elevated white blood cell count, unspecified; E11.22 Type 2 diabetes mellitus with diabetic chronic kidney disease; E11.21 Type 2 diabetes mellitus with diabetic nephropathy; E11.40 Type 2 diabetes mellitus with diabetic neuropathy, unspecified; Z83.3 Family history of diabetes mellitus; Z99.2 Dependence on renal dialysis; E11.621 Type 2 diabetes mellitus with foot ulcer; L97.519 Non-pressure chronic ulcer of other part of right foot with unspecified severity; Z82.49 Family history of ischemic heart disease and other diseases of the circulatory system
CPT/HCPCS: 36415; 70450; 71045; 73700; 75716; 80048; 80053; 80202; 81001; 82962; 83036; 83605; 84484; 85025; 85379; 85610; 85730; 86850; 86900; 86901; 87040; 87070; 87075; 87077; 87081; 87186; 87205; 87426; 90935; 93005; 93926; 96365; 96368; 96375; 97116; 97163; 99152; 99291; G0378; J0690; J0696; J1642; J1815; J2001; J2250; J2405; J2543; J2704; J7060

== ENCOUNTER 2020-06-06 13:06 | Inpatient (IN) | payer MEDICARE, MEDICAID ==
[~2020-06-06] VITALS: Ht 175.3 cm; Wt 89.4 kg
[~2020-06-06 13:06] MED LIST changes: -DOXY100C2 PO
[2020-06-06 14:35] LABS: Basophils # (auto) 0.1 10 ^3/uL (0-0.2); Eosinophils # (auto) 0.4 10 ^3/uL (0-0.8); Lymphocytes # (auto) 1.3 10 ^3/uL (0.4-5.4); Neutrophils # (auto) 3.6 10 ^3/uL (1.6-8.6)
[2020-06-06 14:36] LABS: Basophils % (auto) 2.2 % (0.0-2.0); Eosinophils % (auto) 5.9 % (0.0-7.0); Hematocrit 34.6 % (41.0-53.0); Hemoglobin 11.1 g/dL (13.5-17.5); Lymphocytes % (auto) 20.3 % (10.0-50.0); Mean Corpuscular Hemoglobin 31.1 pg (28.0-32.0); Mean Corpuscular Hgb Conc. 32.2 g/dL (32.0-36.0); Mean Corpuscular Volume 96.6 fL (80.0-100.0); Monocytes # (auto) 0.9 10 ^3/uL (0-1.3); Monocytes % (auto) 13.9 % (0.0-12.0); Neutrophils % (auto) 57.7 % (37.0-80.0); Platelet Count (auto) 472 10^3/uL (140-450); Red Blood Cells 3.58 10^6/uL (4.5-5.90); Red Cell Distribution Width 15.3 % (11.8-14.3); White Blood Cell 6.3 10^3/uL (4.4-10.8)
[2020-06-06 14:51] LABS: Albumin 2.6 g/dL (3.4-5.0); BUN/Creatinine Ratio 4.3; Calcium 8.1 mg/dL (8.5-10.1); Potassium 4.4 mmol/L (3.5-5.1)
[2020-06-06 14:54] LABS: Bilirubin, Total 0.4 mg/dL (0.2-1.0); Total Protein 7.3 g/dL (6.4-8.2)
[2020-06-06 14:58] LABS: INR 1.06 (0.9-1.15); Partial Thromboplastin Time 26.6 sec (23.0-31.2)
[2020-06-06] MEDS ORDERED: SODIUM CHLORIDE 0.9% 1,000 ML IV SCH (18:17)
[2020-06-06] MEDS ORDERED: ACETAMINOPHEN 325 MG TAB PO PRN (18:30)
[2020-06-06] MEDS ORDERED: NITROGLYCERIN 0.4 MG SL TAB SL PRN (18:30)
[2020-06-06] MEDS ORDERED: DOCUSATE SOD 100 MG CAP PO PRN (18:30)
[2020-06-06] MEDS ORDERED: hydrALAZINE HCL 25 MG TAB PO ONE (18:30)
[2020-06-06] MEDS ORDERED: ALUM & MAG HYDROX-SIMETH LIQ(MAALOX) 30 ML PO PRN (18:30)
[2020-06-06] MEDS ORDERED: LORazepam 0.5 MG TAB PO PRN (18:30)
[2020-06-06] MEDS ORDERED: DEXTROSE (50%) 50ML SYRG IV PRN (18:30)
[2020-06-06] MEDS ORDERED: LACTATED RINGER'S 1,000 ML IV ONE (18:30)
[2020-06-06] MEDS ORDERED: MORPHINE SULF INJ 2 MG/ML SYRINGE 1ML IV PRN (18:30)
[2020-06-06] MEDS ORDERED: PIPERACILLIN-TAZOB 3.375GM 100 ML IV ONE (18:30)
[2020-06-06] MEDS ORDERED: VANCOMYCIN PER PHARMACY 0 MG IV SCH (18:30)
[2020-06-06] MEDS ORDERED: hydrALAZINE HCL 25 MG TAB PO PRN (18:30)
[2020-06-06] MEDS ORDERED: HYDROcodone-ACET 5/325MG TAB PO PRN (18:30)
[2020-06-06] MEDS ORDERED: PIPERACILLIN-TAZOB 2.25GM 50 ML IV SCH ×2 (18:45→19:00)
[2020-06-06] MEDS ORDERED: VANCOMYCIN 1GM/250ML 250 ML IV ONE (20:00)
--- NOTE | 2020-06-06 21:26 | NUR ---
Telemetry admit from ER FARRELLJAN EPSTEIN admitted to Telemetry unit after no SBAR received. Patient oriented to DANIEL SILVA RN primary RN, unit, room, bed, and unit policies regarding patient care and visiting hours. Patient now on continuous telemetry monitoring, tele box #[id number] and telemetry reading on arrival to unit is 82 BPM. Patient placed on bedside oxygen, weighed by bedscale and encouraged to call if they need something. All questions and concerns addressed, patient verbalized understanding. FALL PRECAUTIONS IN PLACE AND CALL LIGHT WITHIN REACH
[2020-06-06 22:00] VITALS: BP 169/74
[2020-06-06] MEDS: ACCU-CHEK COMFORT CURVE STRIP VI SCH (22:54)
[2020-06-06] MEDS: InsuLIN REG 1unit/0.01ml Soln (100units/ml) SC SCH (22:54)
[2020-06-06 23:00] VITALS: BP 169/74
[2020-06-06] MEDS ORDERED: TEMAZEPAM 15 MG CAP PO ONE (23:00)
--- NOTE | 2020-06-06 23:00 | NUR ---
PER PATIENT HE WILL PROVIDE HOME MEDICATIONS IN AM
--- NOTE | 2020-06-06 23:00 | NUR ---
PATIENT REFUSING WOUND PICTURES TO BE TAKEN. PATIENT EDUCATED ON BENEFITS AND RISKS. PATIENT VERBALIZED REFUSAL STATING " NO THE DOCTOR WILL TAKE PICTURES THEY JUST DID THE DRESSING CHANGE TODAY" SCALP SPECIALIST NOTIFIED
[2020-06-07] MEDS: PIPERACILLIN-TAZOB 2.25GM 50 ML IV SCH ×2 (00:49→18:03)
[2020-06-07 05:00] VITALS: BP 131/82
--- NOTE | 2020-06-07 05:22 | NUR ---
mrsa swab sent
[2020-06-07] MEDS: InsuLIN REG 1unit/0.01ml Soln (100units/ml) SC SCH ×2 (06:25→22:00)
[2020-06-07] MEDS: ACCU-CHEK COMFORT CURVE STRIP VI SCH ×2 (06:26→22:00)
[2020-06-07 06:44] LABS: Urine Bacteria NONE SEEN /hpf (None Seen); Urine Blood Negative /uL (Negative); Urine Hyaline Cast FEW /lpf (0 - 2); Urine Specific Gravity 1.015 (1.001-1.035); Urine WBC 3 /hpf (0 - 3)
[2020-06-07 07:14] LABS: Alcohol, Urine < 3.0 mg/dL (0-10); Amphetamine Screen, Urine NEGATIVE (NEGATIVE); Barbiturate Scree,Urine NEGATIVE (NEGATIVE); Benzodiazephine Screen, Urine NEGATIVE (NEGATIVE); Cannabinoid Screen, Urine NEGATIVE (NEGATIVE); Cocaine Screen, Urine NEGATIVE (NEGATIVE); Opiate Scree,Urine NEGATIVE (NEGATIVE); Phencyclidine Screen, Urine NEGATIVE (NEGATIVE)
--- NOTE | 2020-06-07 07:30 | NUR ---
patient resting in bed denies sob distress or pain. report given to dayshift leelee
[2020-06-07] MEDS: SEVELAMER 800 MG TAB PO SCH ×3 (08:00→18:04)
[2020-06-07 09:00] VITALS: BP 143/52
--- NOTE | 2020-06-07 10:44 | NUR ---
ss consult Per ss consult advanced directive. Nurse provided patient with advanced directive. Addendum: 06/07/20 at 1045 by Pao JOHNS Amended: Links added.
[2020-06-07] MEDS ORDERED: SODIUM CHL 0.9% 1000 ML BAG XX ONE (13:00)
[2020-06-07 13:03] VITALS: BP 169/74
[2020-06-07] MEDS ORDERED: ceFAZolin 1GM VL ONE (13:13)
[2020-06-07] MEDS ORDERED: ceFAZolin 1GM/50ML 50 ML IV ONE (13:20)
[2020-06-07] MEDS ORDERED: fentaNYL CITRATE 100 MCG/2 ML VL ONE (13:29)
[2020-06-07] MEDS ORDERED: MIDAZOLAM HCL 1MG/1ML-2 ML VIAL ONE (13:30)
[2020-06-07] MEDS ORDERED: DexAMETHasone SOD PHOS 10MG/1ML VIAL INJ ONE (13:33)
[2020-06-07] MEDS ORDERED: PROPOFOL 10 MG/ML 20 ML IV ONE (13:33)
[2020-06-07] MEDS: cloNIDine HCL 0.1 MG TAB PO SCH (14:28)
[2020-06-07] MEDS: PARoxetine 20 MG TAB PO SCH (14:28)
[2020-06-07] MEDS ORDERED: ePHEDrine SULFATE 50 MG/ML AMP IV PRN (14:30)
[2020-06-07] MEDS ORDERED: MIDAZOLAM HCL 1MG/1ML-2 ML VIAL IV PRN (14:30)
[2020-06-07] MEDS ORDERED: ONDANSETRON HCL 4 MG/2 ML VIAL IV PRN (14:30)
[2020-06-07] MEDS ORDERED: MORPHINE SULFATE 4 MG/ML SYR/VIAL IV PRN (14:30)
[2020-06-07] MEDS ORDERED: LABETALOL HCL 5 MG/ML 4ML SYRINGE IV PRN (14:30)
[2020-06-07] MEDS ORDERED: HYDROmorphone HCL 2 MG/ML VL ONE (15:10)
[2020-06-07] MEDS: HYDROmorphone HCL 2 MG/ML VL IV PRN ×4 (15:11→15:45)
[2020-06-07] MEDS ORDERED: VANCOMYCIN 1GM/250ML 250 ML IV ONE (16:00)
[2020-06-07 17:00] VITALS: BP 114/67
[2020-06-07] MEDS ORDERED: PIPERACILLIN-TAZOB 0.75 GM in D5W 5% 50 ML IV SCH (18:00)
[2020-06-07] MEDS: MORPHINE SULF INJ 2 MG/ML SYRINGE 1ML IV PRN (20:50)
[2020-06-07] MEDS: ONDANSETRON HCL 4 MG/2 ML VIAL IV PRN (20:51)
[2020-06-07 22:00] VITALS: BP 136/61
[2020-06-07] MEDS: GABAPENTIN 300 MG CAP PO SCH (22:00)
[2020-06-08] MEDS: PIPERACILLIN-TAZOB 2.25GM 50 ML IV SCH ×3 (01:00→23:26)
[2020-06-08 05:00] VITALS: BP 115/51
[2020-06-08] MEDS: ACCU-CHEK COMFORT CURVE STRIP VI SCH ×4 (07:00→22:00)
[2020-06-08] MEDS: InsuLIN REG 1unit/0.01ml Soln (100units/ml) SC SCH ×4 (07:00→22:00)
[2020-06-08 07:06] LABS: Basophils # (auto) 0.1 10 ^3/uL (0-0.2); Eosinophils # (auto) 0 10 ^3/uL (0-0.8); Eosinophils % (auto) 0.2 % (0.0-7.0); Hematocrit 31.6 % (41.0-53.0); Hemoglobin 10.3 g/dL (13.5-17.5); Lymphocytes % (auto) 11.8 % (10.0-50.0); Mean Corpuscular Hemoglobin 31.3 pg (28.0-32.0); Mean Corpuscular Hgb Conc. 32.7 g/dL (32.0-36.0); Mean Corpuscular Volume 95.6 fL (80.0-100.0); Monocytes # (auto) 1.4 10 ^3/uL (0-1.3); Monocytes % (auto) 16.8 % (0.0-12.0); Neutrophils # (auto) 5.8 10 ^3/uL (1.6-8.6); Neutrophils % (auto) 70.2 % (37.0-80.0); Nucleated Red Blood Cells % 0.1 %; Platelet Count (auto) 391 10^3/uL (140-450); Red Blood Cells 3.31 10^6/uL (4.5-5.90); Red Cell Distribution Width 15.4 % (11.8-14.3); White Blood Cell 8.3 10^3/uL (4.4-10.8)
[2020-06-08 07:18] LABS: Potassium 4.7 mmol/L (3.5-5.1)
[2020-06-08 07:26] LABS: Phosphorus 7.1 mg/dL (2.5-4.90)
[2020-06-08 09:00] VITALS: BP 136/61
[2020-06-08] MEDS: cloNIDine HCL 0.1 MG TAB PO SCH (09:55)
[2020-06-08] MEDS: PARoxetine 20 MG TAB PO SCH (09:56)
--- NOTE | 2020-06-08 10:00 | NUR ---
WOUND CARE NOTE: IN TO PLACE WOUND VAC DRESSING PER MD ORDER. PATIENT RECENTLY UNDERWENT SURGERY CONSISTING OF OPEN AMPUTATION OF RIGHT # 5 METATARSAL WITH INCISION AND DRAINAGE ON 06/07/20. VAC DRESSING ORDER PLACED AT THAT TIME. PATIENT HAS CURRENT HANK SCORE OF 15. HE CAN ASSIST WITH HIS TURNING/REPOSITIONING. SKIN/WOUND CARE PLAN IMPLEMENTED AT THIS TIME. PATIENT'S POST OPERATIVE DRESSING REMOVED. OF NOTE, THERE WAS STRIKE THROUGH BLEEDING NOTED TO DRESSING. WOUND MEASURES 6 X 3 X 3.5 CM. BONE IS PALPABLE AT WOUND BED BASE. PATIENT IS ACTIVELY BLEEDING FROM WOUND, WITH LIGHT AMOUNT OF SANGUINOUS DRAINAGE NOTED IN WOUND CAVITY. WOUND CONTINUES TO OOZE SANGUINOUS DRAINAGE, TEMPORARY DRESSING WILL BE APPLIED, AND WILL ATTEMP VAC PLACEMENT LATER TODAY. PHOTOGRAPHED WOUND FOR REFERENCE. CLEANSED WOUND WITH WOUND CLEANSER, PATTED DRY WITH STERILE GAUZE. PACKED WOUND BED WITH XEROFORM GAUZE, STERILE 4X4'S AND COVERED WITH ABD PAD. WRAPPED FOOT WITH KERLIX, AND APPLIED FRANCIE PRESSURE WRAP. ELEVATED FOOT UP ON PILLOW. Addendum: 06/08/20 at 1101 by Liana Sun RN Amended: Links added.
[2020-06-08] MEDS: MORPHINE SULF INJ 2 MG/ML SYRINGE 1ML IV PRN ×2 (10:06→23:47)
[2020-06-08] MEDS: SEVELAMER 800 MG TAB PO SCH ×3 (10:06→17:31)
--- NOTE | 2020-06-08 12:54 | NUR ---
Nutrition Consult Consider adding Nephrovite and Vitamin C 500 mg BID Est energy needs [id number] kcal (20-22 kcal/kg BW 91.6kg) Est protein needs 92-110g (1-1.2g/kg BW 91.6kg r/t ESRD on HD) Will reassess prn. Addendum: 06/08/20 at [address] Amended: Links added.
[2020-06-08 13:00] VITALS: BP 139/49
--- NOTE | 2020-06-08 13:30 | NUR ---
WOUND CARE NOTE: IN TO CHECK RIGHT FOOT WOUND FOR ACTIVE BLEEDING AND POSSIBLE VAC PLACEMENT. DRESSING REMOVED. NO ACTIVE BLEEDING NOTED AT THIS TIME. IRRIGATED WOUND WITH NORMAL SALINE, PATTED DRY WITH STERILE GAUZE. APPLIED CAVILON NO STING BARRIER FILM TO PERIWOUND/BRIDGE SKIN AREAS. APPLIED CLEAR DRAPE TO SAME AREAS. COVERED SMALL SUTURED INCISION WITH XEROFORM STRIP. PACKED WOUND CAVITY WITH WHITE FOAM TO PROTECT PALPABLE BONE. APPLIED BLACK GRANUFOAM, CREATED BRIDGE TO DORSAL FOOT, COVERED WITH CLEAR DRAPE. APPLIED TRAC PAD, CONNECTED TO VAC, SET TO 125 MM/HG CONTINUOUS. GOOD SUCTION NO LEAKS DETECTED, NO BLEEDING NOTED. APPLIED STOCKINETTE. ELEVATED FOOT UP ONTO PILLOWS FOR EDEMA CONTROL. PATIENT TOLERATED DRESSING CHANGE WELL, NOTING NO PAIN BY PATIENT. [employer] THERAPY INSURANCE AUTHORIZATION FILLED OUT, MD SIGNED, PLACED IN CHART ALONG WITH ALL PERTINENT DOCUMENTATION FOR [facility] [employer] ACTION. WOUND CARE TEAM WILL CONTINUE TO MONITOR. Addendum: 06/08/20 at 1636 by Liana Sun RN Amended: Links added.
[2020-06-08 17:00] VITALS: BP 136/57
--- NOTE | 2020-06-08 19:40 | NUR ---
Pt reclining in darkened room; relaxed. TV on and pt watching telephone with male speaking. RN did not interrupt. R foot elevated. Wound vac attached. Bed in low position with HOB in semi-Ortiz's position.
[2020-06-08 22:00] VITALS: BP 126/74
[2020-06-08] MEDS: GABAPENTIN 300 MG CAP PO SCH (22:00)
[2020-06-08] MEDS: ONDANSETRON HCL 4 MG/2 ML VIAL IV PRN (23:44)
[2020-06-09 05:00] VITALS: BP 137/73
[2020-06-09] MEDS: ACCU-CHEK COMFORT CURVE STRIP VI SCH ×4 (06:27→22:27)
[2020-06-09] MEDS: InsuLIN REG 1unit/0.01ml Soln (100units/ml) SC SCH ×4 (06:28→22:00)
[2020-06-09] MEDS ORDERED: SODIUM CHL 0.9% 1000 ML BAG XX ONE (07:00)
--- NOTE | 2020-06-09 08:00 | NUR ---
Opening Shift Note Assumed care of patient, awake, alert, and oriented. No S/S of distress/SOB or pain. Bed in lowest/locked position, bed rails up x2, call light within reach. Instructed on POC and to call for assist PRN. Will continue to monitor for changes Q1hr and PRN.
[2020-06-09] MEDS: PARoxetine 20 MG TAB PO SCH (08:33)
[2020-06-09] MEDS: SEVELAMER 800 MG TAB PO SCH ×3 (08:33→17:48)
[2020-06-09] MEDS: cloNIDine HCL 0.1 MG TAB PO SCH (08:34)
[2020-06-09 09:00] VITALS: BP 146/55
[2020-06-09] MEDS ORDERED: levoFLOXacin 500MG 100 ML IV SCH (10:30)
--- NOTE | 2020-06-09 11:40 | NUR ---
INSULIN PATIENT B/S 132. PATIENT REFUSING 2 UNITS OF INSULIN AT THIS TIME. PER PATIENT; THE SUGAR ISN'T THAT HIGH. EDUCATED PATIENT ON INSULIN, PATIENT VERBALIZED UNDERSTANDING, CONTINUES TO REFUSE INSULIN AT THIS TIME. WILL CONTINUE TO MONITOR
--- NOTE | 2020-06-09 11:49 | NUR ---
Assessment Patient is a 69-year-old male who is alert and oriented. Patient primary language is Slovenian. Prior to admission patient lived home with his Helen and functioned with assistance. Patient has a cane for home use. [facility] Patient PCP is Dr. Tan. Advised patient there is a social service consult for SNF placement for wound vac and IV abx . Information and choice letter was given to patient. Patient requested [facility]. Informed patient clinical information [facility] for the wound vac. Patient was informed he has a right to participate in all discharge planning. Patient verbalized understanding discharge plan to SNF. [facility]. Per Nina with [facility] patient has been accepted and will be going to room 203 bed 3 accepting Md, Dr. Urbina. Requested for Wound Vac to be deliver to bed side. Transportation will be arranged upon discharge day. Addendum: 06/09/20 at 1150 by JACEK JOHNS Amended: Links added.
--- NOTE | 2020-06-09 12:17 | NUR ---
WILLIAM DAWSON SWAB WALKED TO LAB BY PITA TREJO
[2020-06-09] MEDS: MORPHINE SULF INJ 2 MG/ML SYRINGE 1ML IV PRN (12:27)
[2020-06-09 13:00] VITALS: BP 126/30
[2020-06-09 14:49] LABS: Basophils # (auto) 0.2 10 ^3/uL (0-0.2); Eosinophils # (auto) 0.3 10 ^3/uL (0-0.8); Eosinophils % (auto) 4.5 % (0.0-7.0); Hematocrit 30.4 % (41.0-53.0); Hemoglobin 9.7 g/dL (13.5-17.5); Lymphocytes % (auto) 16.6 % (10.0-50.0); Mean Corpuscular Hemoglobin 31.4 pg (28.0-32.0); Mean Corpuscular Hgb Conc. 31.8 g/dL (32.0-36.0); Mean Corpuscular Volume 98.6 fL (80.0-100.0); Monocytes # (auto) 0.9 10 ^3/uL (0-1.3); Monocytes % (auto) 16.2 % (0.0-12.0); Neutrophils # (auto) 3.5 10 ^3/uL (1.6-8.6); Neutrophils % (auto) 59.7 % (37.0-80.0); Nucleated Red Blood Cells % 0.1 %; Platelet Count (auto) 324 10^3/uL (140-450); Red Blood Cells 3.09 10^6/uL (4.5-5.90); Red Cell Distribution Width 16.2 % (11.8-14.3); White Blood Cell 5.8 10^3/uL (4.4-10.8)
[2020-06-09 15:07] LABS: Anion Gap 11 (5-15); BUN/Creatinine Ratio 5.3; Blood Urea Nitrogen 45 mg/dL (7-18); Calcium 7.8 mg/dL (8.5-10.1); Carbon Dioxide 26 mmol/L (21-32); Chloride 98 mmol/L (98-107); GFR African American 8 mL/min; GFR Non-African American 7 mL/min; Glucose 141 mg/dL (74-106); Potassium 5.3 mmol/L (3.5-5.1); Sodium 135 mmol/L (136-145)
--- NOTE | 2020-06-09 15:40 | NUR ---
D/C planning Received a follow up called from [facility], spoke to Marzena. Per Marzena, [facility] needs to call them at and request a stander order #[id number] before they can release the wound vac. Placed follow up called to Nina with [facility] advising Marzena with [facility] is requesting for facility to request a stander order. Per Nina she will contact [facility].
--- NOTE | 2020-06-09 16:31 | NUR ---
INSULIN PATIENT B/S 133. PATIENT REFUSING 2 UNITS OF INSULIN AT THIS TIME. PER PATIENT; THE SUGAR ISN'T THAT HIGH. EDUCATED PATIENT ON INSULIN, PATIENT VERBALIZED UNDERSTANDING, CONTINUES TO REFUSE INSULIN AT THIS TIME. WILL CONTINUE TO MONITOR
[2020-06-09 17:15] VITALS: BP 151/45
[2020-06-09] MEDS ORDERED: VANCOMYCIN 1GM/250ML 250 ML IV ONE (18:00)
--- NOTE | 2020-06-09 19:40 | NUR ---
Opening Shift Note Assumed care of patient after receiving report from PITA Sprague. Patient is awake and alert with no S/S of distress/SOB or pain. Call light within reach, bed in lowest locked position x2 side rails, HOB semi fowlers. Instructed on POC and to call for assist PRN, will continue to monitor for changes Q1hr and PRN.
[2020-06-09 22:00] VITALS: BP 135/48
--- NOTE | 2020-06-09 22:21 | NUR ---
Insulin refused Blood glucose of 138. Patient refused two units of insulin at this time. Patient stated that it isn't that high and "maybe in the morning". Will continue to monitor.
[2020-06-09] MEDS: GABAPENTIN 300 MG CAP PO SCH (22:27)
[2020-06-10 05:00] VITALS: BP 128/48
[2020-06-10] MEDS: ACCU-CHEK COMFORT CURVE STRIP VI SCH ×2 (06:31→11:30)
[2020-06-10] MEDS: InsuLIN REG 1unit/0.01ml Soln (100units/ml) SC SCH ×2 (06:31→11:30)
[2020-06-10 09:00] VITALS: BP 139/59
[2020-06-10] MEDS: SEVELAMER 800 MG TAB PO SCH ×2 (09:10→12:58)
[2020-06-10] MEDS: cloNIDine HCL 0.1 MG TAB PO SCH (10:00)
[2020-06-10] MEDS: PARoxetine 20 MG TAB PO SCH (10:00)
--- NOTE | 2020-06-10 10:55 | NUR ---
WOUND CARE NOTE: IN TO ASSESS FUNCTION OF WOUND VAC AT THIS TIME. VAC IS RUNNING AT 125 MM/HG CONTINUOUS. GOOD SUCTION, NO LEAKS DETECTED. WOUND CARE TEAM WILL CONTINUE TO MONITOR.
--- NOTE | 2020-06-10 11:19 | NUR ---
REPORT CALLED IN TO TRAN LEMA WITH [facility]. ALL QUESTIONS/CONCERNS ADDRESSED.
[2020-06-10 11:33] VITALS: BP 139/59
--- NOTE | 2020-06-10 12:15 | NUR ---
PER JEFFREY GOMEZ PATIENTS WOUND VAC IS SET TO BE DELIVERED AT 1300, AND TRANSPORTATION SET UP WITH [facility] SET FOR 1330.
[2020-06-10 13:00] VITALS: BP 146/57
--- NOTE | 2020-06-10 13:50 | NUR ---
WOUND VAC PER JEFFREY MENDOZA WOUND VAC IS SCHEDULED TO BE DELIVERED AT [facility]. PATIENT TO BE DISCONNECTED AND LOCKED FOR TRANSPORT. WILL AWAIT TRANSPORTATION.
--- NOTE | 2020-06-10 14:20 | NUR ---
Discharge instructions given as ordered. Encourage to follow up with PMD as instructed. All questions and concerns addressed. Patient verbalized understanding. Medication reconciliation form completed and copy given to patient. Telemetry unit returned to ICU. Patient taken by [facility] transportation via [place] with [facility] as destination. With locked, and dressed wound vac access and patent and secured midline access to right upper arm. All personal belongings included. No distress noted at time of departure.
== END 2020-06-10 14:20 | DRG 907 ==
LOC: ER 13:06 → TELE 13:07 → TELE-WESTW 21:26
PROVIDERS: ADMIT Hospitalist; ATTEND Internal Medicine
PROC: 5A1D70Z Performance of Urinary Filtration, Intermittent, Less than 6 Hours Per Day (ICD-10-PCS; 2020-06-07)
PROC: 0QBN0ZZ Excision of Right Metatarsal, Open Approach (ICD-10-PCS; principal; 2020-06-07 13:25)
PROC: 5A1D70Z Performance of Urinary Filtration, Intermittent, Less than 6 Hours Per Day (ICD-10-PCS; 2020-06-09)
DX: T81.30XA Disruption of wound, unspecified, initial encounter (principal); E43 Unspecified severe protein-calorie malnutrition; N18.6 End stage renal disease; L03.115 Cellulitis of right lower limb; E87.1 Hypo-osmolality and hyponatremia; I13.11 Hypertensive heart and chronic kidney disease without heart failure, with stage 5 chronic kidney disease, or end stage renal disease; M86.8X7 Other osteomyelitis, ankle and foot; E11.69 Type 2 diabetes mellitus with other specified complication; E11.621 Type 2 diabetes mellitus with foot ulcer; L97.519 Non-pressure chronic ulcer of other part of right foot with unspecified severity; E11.22 Type 2 diabetes mellitus with diabetic chronic kidney disease; D63.1 Anemia in chronic kidney disease; E11.40 Type 2 diabetes mellitus with diabetic neuropathy, unspecified; E11.628 Type 2 diabetes mellitus with other skin complications; E11.51 Type 2 diabetes mellitus with diabetic peripheral angiopathy without gangrene; E78.5 Hyperlipidemia, unspecified; Z82.49 Family history of ischemic heart disease and other diseases of the circulatory system; Z99.2 Dependence on renal dialysis; Z83.3 Family history of diabetes mellitus; Z91.19 Patient's noncompliance with other medical treatment and regimen; Z68.29 Body mass index [BMI] 29.0-29.9, adult; Z20.828 Contact with and (suspected) exposure to other viral communicable diseases
CPT/HCPCS: 36415; 71045; 73700; 80048; 80053; 80061; 80202; 80307; 81001; 82962; 83036; 84100; 84484; 85025; 85610; 85652; 85730; 87040; 87070; 87075; 87077; 87081; 87086; 87205; 87426; 90935; 93005; G0378; J0690; J1100; J1956; J2250; J2405; J2543; J2704

== ENCOUNTER → 2020-08-02 | Day surgery (SDC) | payer MEDICARE, MEDICAID ==
[2020-07-28 13:05] LABS: Basophils # (auto) 0 10 ^3/uL (0-0.2); Basophils % (auto) 0.9 % (0.0-2.0); Eosinophils # (auto) 0.5 10 ^3/uL (0-0.8); Eosinophils % (auto) 9.3 % (0.0-7.0); Hematocrit 29.5 % (41.0-53.0); Hemoglobin 9.5 g/dL (13.5-17.5); Lymphocytes # (auto) 0.8 10 ^3/uL (0.4-5.4); Lymphocytes % (auto) 15.3 % (10.0-50.0); Mean Corpuscular Hemoglobin 30.7 pg (28.0-32.0); Mean Corpuscular Hgb Conc. 32.2 g/dL (32.0-36.0); Mean Corpuscular Volume 95.3 fL (80.0-100.0); Monocytes # (auto) 0.9 10 ^3/uL (0-1.3); Monocytes % (auto) 17.4 % (0.0-12.0); Neutrophils # (auto) 3.1 10 ^3/uL (1.6-8.6); Neutrophils % (auto) 57.1 % (37.0-80.0); Platelet Count (auto) 279 10^3/uL (140-450); Red Blood Cells 3.09 10^6/uL (4.5-5.90); Red Cell Distribution Width 17.9 % (11.8-14.3); White Blood Cell 5.4 10^3/uL (4.4-10.8)
[2020-07-28 13:19] LABS: INR 1.01 (0.9-1.15); Partial Thromboplastin Time 26.8 sec (23.0-31.2)
[2020-07-28 13:54] LABS: Albumin 2.8 g/dL (3.4-5.0); Calcium 7.8 mg/dL (8.5-10.1); Potassium 4.9 mmol/L (3.5-5.1)
[2020-07-28 13:57] LABS: BUN/Creatinine Ratio 7.2; Bilirubin, Total 0.4 mg/dL (0.2-1.0); Total Protein 6.5 g/dL (6.4-8.2)
[~2020-08-02] VITALS: Ht 165.1 cm; Wt 89.8 kg
[~2020-08-02] MED LIST changes: +ACCU-CHEK COMFORT CURVE STRIP VI ONE; +HYDROmorphone HCL 2 MG/ML VL IV PRN; +LIDOCAINE 1% (LOCAL ANESTH.) PF 5ml SDV ONE; +METOCLOPRAMIDE HCL 5MG/ml INJ 2ml VIAL ONE; +MIDAZOLAM HCL 1MG/1ML-2 ML VIAL ONE; +NALOXONE HCL 0.4 MG/ML VIAL IV PRN; +ONDANSETRON HCL 4 MG/2 ML VIAL IV PRN; +PROPOFOL 10 MG/ML 20 ML IV ONE; +ROCURONIUM 10MG/ML 10ML VIAL IV ONE; +SUCCINYLCHOLINE CHLORIDE 20 MG/ML 10ML VIAL IV ONE; +ceFAZolin 1GM VL ONE; +ceFAZolin 1GM/50ML 50 ML IV ONE; +diphenhdrAMINE HCL 50 MG/1 ML VL ONE; +fentaNYL CITRATE 100 MCG/2 ML VL ONE
[2020-08-02 10:05] VITALS: BP 162/65
== END | disposition home or self-care (01) ==
LOC: SUR 06:17
PROVIDERS: ATTEND Podiatrist Foot & Ankle Surgery
DX: S91.301A Unspecified open wound, right foot, initial encounter (principal); L97.519 Non-pressure chronic ulcer of other part of right foot with unspecified severity; M79.674 Pain in right toe(s); D64.9 Anemia, unspecified; K21.9 Gastro-esophageal reflux disease without esophagitis; E11.22 Type 2 diabetes mellitus with diabetic chronic kidney disease; I12.0 Hypertensive chronic kidney disease with stage 5 chronic kidney disease or end stage renal disease; N18.6 End stage renal disease; E66.01 Morbid (severe) obesity due to excess calories; G47.33 Obstructive sleep apnea (adult) (pediatric); F32.9 Major depressive disorder, single episode, unspecified; E66.9 Obesity, unspecified; Z68.32 Body mass index [BMI] 32.0-32.9, adult; Z79.899 Other long term (current) drug therapy; Z20.828 Contact with and (suspected) exposure to other viral communicable diseases; Z98.890 Other specified postprocedural states; X58.XXXA Exposure to other specified factors, initial encounter; Y93.89 Activity, other specified; Y92.89 Other specified places as the place of occurrence of the external cause; Y99.8 Other external cause status
CPT/HCPCS: 15004; 15275; 36415; 80053; 82962; 85025; 85610; 85730; 88304; C1887; J0330; J0690; J1200; J2250; J2704; J2765; J3010; Q4126; U0003

== ENCOUNTER 2020-12-28 11:13 | Inpatient (IN) | payer MEDICARE, MEDICAID ==
[~2020-12-28] VITALS: Ht 175.3 cm; Wt 102.4 kg
[~2020-12-28 11:13] MED LIST changes: -ACCU-CHEK COMFORT CURVE STRIP VI ONE; -HYDROmorphone HCL 2 MG/ML VL IV PRN; -LIDOCAINE 1% (LOCAL ANESTH.) PF 5ml SDV ONE; -METOCLOPRAMIDE HCL 5MG/ml INJ 2ml VIAL ONE; -MIDAZOLAM HCL 1MG/1ML-2 ML VIAL ONE; -NALOXONE HCL 0.4 MG/ML VIAL IV PRN; -ONDANSETRON HCL 4 MG/2 ML VIAL IV PRN; -PROPOFOL 10 MG/ML 20 ML IV ONE; -ROCURONIUM 10MG/ML 10ML VIAL IV ONE; -SUCCINYLCHOLINE CHLORIDE 20 MG/ML 10ML VIAL IV ONE; -ceFAZolin 1GM VL ONE; -ceFAZolin 1GM/50ML 50 ML IV ONE; -diphenhdrAMINE HCL 50 MG/1 ML VL ONE; -fentaNYL CITRATE 100 MCG/2 ML VL ONE
[2020-12-28] MEDS ORDERED: SODIUM CHLORIDE 0.9% 500 ML IV ONE (11:30)
[2020-12-28 12:59] LABS: Basophils # (auto) 0.1 10 ^3/uL (0-0.2); Eosinophils # (auto) 0.2 10 ^3/uL (0-0.8); Monocytes # (auto) 0.8 10 ^3/uL (0-1.3); Neutrophils # (auto) 3.4 10 ^3/uL (1.6-8.6)
[2020-12-28 13:02] LABS: Basophils % (auto) 1.4 % (0.0-2.0); Eosinophils % (auto) 4.5 % (0.0-7.0); Hematocrit 31.2 % (41.0-53.0); Hemoglobin 10.7 g/dL (13.5-17.5); Lymphocytes # (auto) 0.7 10 ^3/uL (0.4-5.4); Lymphocytes % (auto) 14.1 % (10.0-50.0); Mean Corpuscular Hemoglobin 34.9 pg (28.0-32.0); Mean Corpuscular Hgb Conc. 34.2 g/dL (32.0-36.0); Mean Corpuscular Volume 101.8 fL (80.0-100.0); Monocytes % (auto) 14.7 % (0.0-12.0); Neutrophils % (auto) 65.3 % (37.0-80.0); Nucleated Red Blood Cells % 0.1 %; Platelet Count (auto) 203 10^3/uL (140-450); Red Blood Cells 3.06 10^6/uL (4.5-5.90); Red Cell Distribution Width 18.3 % (11.8-14.3); White Blood Cell 5.2 10^3/uL (4.4-10.8)
[2020-12-28 13:09] LABS: BUN/Creatinine Ratio 12.3; Calcium 7.2 mg/dL (8.5-10.1); Potassium 4.3 mmol/L (3.5-5.1)
[2020-12-28 13:15] LABS: Bilirubin, Total 0.7 mg/dL (0.2-1.0)
[2020-12-28] MEDS ORDERED: cloNIDine HCL 0.1 MG TAB PO ONE (16:00)
[2020-12-28] MEDS ORDERED: ONDANSETRON HCL 4 MG/2 ML VIAL IV ONE (16:15)
[2020-12-28] MEDS ORDERED: MORPHINE SULFATE 4 MG/ML SYR/VIAL IV ONE (16:15)
[2020-12-28] MEDS ORDERED: MORPHINE SULF INJ 2 MG/ML SYRINGE 1ML IV PRN (16:45)
[2020-12-28] MEDS ORDERED: HYDROcodone-ACET 5/325MG TAB PO PRN (16:45)
[2020-12-28] MEDS ORDERED: NITROGLYCERIN 0.4 MG SL TAB SL PRN (16:45)
[2020-12-28] MEDS ORDERED: DEXTROSE (50%) 50ML SYRG IV PRN (16:45)
[2020-12-28] MEDS: ACCU-CHEK COMFORT CURVE STRIP VI SCH ×2 (17:00→22:00)
[2020-12-28] MEDS: InsuLIN REG 1unit/0.01ml Soln (100units/ml) SC SCH ×2 (17:39→22:00)
[2020-12-28] MEDS: hydrALAZINE HCL 20 MG/ML VL IV PRN (18:06)
[2020-12-28] MEDS: SEVELAMER 800 MG TAB PO SCH (18:59)
[2020-12-28 20:00] VITALS: BP 145/77
[2020-12-28 20:20] VITALS: BP 145/77
[2020-12-28] MEDS: GABAPENTIN 300 MG CAP PO SCH (22:00)
[2020-12-29] MEDS: MORPHINE SULF INJ 2 MG/ML SYRINGE 1ML IV PRN ×3 (01:00→21:45)
[2020-12-29 05:33] VITALS: BP 152/77
[2020-12-29] MEDS: InsuLIN REG 1unit/0.01ml Soln (100units/ml) SC SCH ×4 (06:39→22:00)
[2020-12-29] MEDS: ACCU-CHEK COMFORT CURVE STRIP VI SCH ×4 (06:39→22:59)
[2020-12-29] MEDS: PARoxetine 20 MG TAB PO SCH (06:56)
[2020-12-29] MEDS ORDERED: SODIUM CHL 0.9% 1000 ML BAG XX ONE (07:00)
[2020-12-29 07:16] LABS: Basophils # (auto) 0.1 10 ^3/uL (0-0.2); Hemoglobin 9.8 g/dL (13.5-17.5); Mean Corpuscular Hgb Conc. 34.1 g/dL (32.0-36.0); Red Blood Cells 2.83 10^6/uL (4.5-5.90)
[2020-12-29 07:20] LABS: Basophils % (auto) 1.2 % (0.0-2.0); Eosinophils # (auto) 0.2 10 ^3/uL (0-0.8); Hematocrit 28.7 % (41.0-53.0); Lymphocytes # (auto) 0.7 10 ^3/uL (0.4-5.4); Lymphocytes % (auto) 14.9 % (10.0-50.0); Mean Corpuscular Hemoglobin 34.5 pg (28.0-32.0); Mean Corpuscular Volume 101.3 fL (80.0-100.0); Monocytes # (auto) 0.8 10 ^3/uL (0-1.3); Monocytes % (auto) 16.9 % (0.0-12.0); Nucleated Red Blood Cells % 0.1 %; Platelet Count (auto) 190 10^3/uL (140-450); Red Cell Distribution Width 18.5 % (11.8-14.3); White Blood Cell 4.8 10^3/uL (4.4-10.8)
[2020-12-29 07:35] LABS: Albumin 2.9 g/dL (3.4-5.0); Calcium 7.5 mg/dL (8.5-10.1)
[2020-12-29 07:41] LABS: BUN/Creatinine Ratio 12.2; Bilirubin, Total 0.7 mg/dL (0.2-1.0); Phosphorus 6.3 mg/dL (2.5-4.90); Total Protein 6.7 g/dL (6.4-8.2)
[2020-12-29] MEDS: SEVELAMER 800 MG TAB PO SCH ×3 (08:25→17:47)
[2020-12-29] MEDS: ASPirin-EC 81 mg tab PO SCH (08:26)
[2020-12-29 09:00] VITALS: BP 144/70
[2020-12-29 13:00] VITALS: BP 150/82
[2020-12-29 16:51] VITALS: BP 186/91
[2020-12-29] MEDS ORDERED: diazePAM 2 MG TAB PO PRN (17:30)
[2020-12-29] MEDS: hydrALAZINE HCL 20 MG/ML VL IV PRN (17:46)
[2020-12-29] MEDS ORDERED: EPOETIN ALFA-EPBX 10,000 UNIT/1ML VIAL SC ONE (21:00)
[2020-12-29 22:00] VITALS: BP 149/73
[2020-12-29] MEDS: GABAPENTIN 300 MG CAP PO SCH (22:59)
[2020-12-30] MEDS: hydrALAZINE HCL 20 MG/ML VL IV PRN ×2 (04:55→13:23)
[2020-12-30 05:00] VITALS: BP 178/93
[2020-12-30] MEDS: PARoxetine 20 MG TAB PO SCH (06:11)
[2020-12-30] MEDS: InsuLIN REG 1unit/0.01ml Soln (100units/ml) SC SCH ×4 (06:33→22:00)
[2020-12-30] MEDS: ACCU-CHEK COMFORT CURVE STRIP VI SCH ×3 (06:34→16:56)
[2020-12-30] MEDS: ONDANSETRON HCL 4 MG/2 ML VIAL IV PRN ×2 (07:49→21:10)
[2020-12-30 08:00] VITALS: BP 166/89
[2020-12-30] MEDS: SEVELAMER 800 MG TAB PO SCH ×3 (08:00→17:31)
[2020-12-30 09:00] VITALS: BP 168/89
[2020-12-30] MEDS: ASPirin-EC 81 mg tab PO SCH (10:19)
[2020-12-30 13:00] VITALS: BP 185/76
[2020-12-30 17:00] VITALS: BP 148/77
[2020-12-30] MEDS: MORPHINE SULF INJ 2 MG/ML SYRINGE 1ML IV PRN (21:10)
[2020-12-30 21:58] VITALS: BP 163/93
[2020-12-30] MEDS: GABAPENTIN 300 MG CAP PO SCH (22:00)
[2020-12-31] MEDS: hydrALAZINE HCL 20 MG/ML VL IV PRN ×2 (02:04→08:27)
[2020-12-31] MEDS: MORPHINE SULF INJ 2 MG/ML SYRINGE 1ML IV PRN ×2 (02:42→23:05)
[2020-12-31 05:02] VITALS: BP 164/79
[2020-12-31] MEDS: PARoxetine 20 MG TAB PO SCH (06:28)
[2020-12-31] MEDS: InsuLIN REG 1unit/0.01ml Soln (100units/ml) SC SCH ×4 (06:29→21:48)
[2020-12-31] MEDS: ACCU-CHEK COMFORT CURVE STRIP VI SCH ×5 (06:29→21:48)
[2020-12-31 08:07] VITALS: BP 170/87
[2020-12-31] MEDS: SEVELAMER 800 MG TAB PO SCH ×3 (08:26→17:55)
[2020-12-31] MEDS: ONDANSETRON HCL 4 MG/2 ML VIAL IV PRN (08:37)
[2020-12-31 08:47] VITALS: BP 170/87
[2020-12-31] MEDS: ASPirin-EC 81 mg tab PO SCH (09:29)
[2020-12-31] MEDS ORDERED: SODIUM CHL 0.9% 1000 ML BAG XX ONE (10:00)
[2020-12-31 12:33] LABS: Potassium 5.2 mmol/L (3.5-5.1)
[2020-12-31 12:39] LABS: BUN/Creatinine Ratio 16.3
[2020-12-31] MEDS: hydrALAZINE HCL 25 MG TAB PO SCH ×2 (12:49→17:54)
[2020-12-31] MEDS: CARVEDILOL 3.125 MG TAB PO SCH ×2 (12:49→21:48)
[2020-12-31 13:00] VITALS: BP 157/93
[2020-12-31 16:27] VITALS: BP 163/67
[2020-12-31] MEDS ORDERED: EPOETIN ALFA-EPBX 10,000 UNIT/1ML VIAL SC ONE (21:00)
[2020-12-31] MEDS: GABAPENTIN 300 MG CAP PO SCH (21:48)
[2020-12-31 22:23] VITALS: BP 153/80
[2021-01-01] MEDS: hydrALAZINE HCL 25 MG TAB PO SCH ×3 (00:08→12:17)
[2021-01-01 01:08] VITALS: BP 151/69
[2021-01-01 05:05] VITALS: BP 148/78
[2021-01-01] MEDS: ACCU-CHEK COMFORT CURVE STRIP VI SCH ×2 (06:11→12:17)
[2021-01-01] MEDS: InsuLIN REG 1unit/0.01ml Soln (100units/ml) SC SCH ×2 (06:11→12:18)
[2021-01-01] MEDS: PARoxetine 20 MG TAB PO SCH (06:11)
[2021-01-01] MEDS: SEVELAMER 800 MG TAB PO SCH ×2 (08:00→12:00)
[2021-01-01] MEDS: ASPirin-EC 81 mg tab PO SCH (08:31)
[2021-01-01] MEDS: CARVEDILOL 3.125 MG TAB PO SCH (08:32)
[2021-01-01] MEDS: MORPHINE SULF INJ 2 MG/ML SYRINGE 1ML IV PRN (08:40)
[2021-01-01 09:00] VITALS: BP 160/81
[2021-01-01 13:00] VITALS: BP 144/78
[2021-01-01] MEDS ORDERED: SODIUM ZIRCONIUM CYCL 10 GM PAK PO ONE (14:45)
[2021-01-01 15:55] VITALS: BP 144/78
[2021-01-02] MEDS ORDERED: SODIUM CHL 0.9% 1000 ML BAG XX ONE (07:00)
[2021-01-02] MEDS ORDERED: EPOETIN ALFA-EPBX 10,000 UNIT/1ML VIAL SC ONE (21:00)
== END 2021-01-01 16:35 | disposition home or self-care (01) | DRG 70 ==
LOC: ER 11:13 → EDUNIT# 11:13 → EDBD 11:13 → TELE 11:14 → TELE-CENTR 20:00
PROVIDERS: ADMIT Nurse Practitioner; ATTEND Nurse Practitioner
PROC: 5A1D70Z Performance of Urinary Filtration, Intermittent, Less than 6 Hours Per Day (ICD-10-PCS; principal; 2020-12-29)
PROC: 5A1D70Z Performance of Urinary Filtration, Intermittent, Less than 6 Hours Per Day (ICD-10-PCS; 2020-12-29)
DX: G93.41 Metabolic encephalopathy (principal); N18.6 End stage renal disease; S22.41XA Multiple fractures of ribs, right side, initial encounter for closed fracture; R18.8 Other ascites; I13.2 Hypertensive heart and chronic kidney disease with heart failure and with stage 5 chronic kidney disease, or end stage renal disease; I50.22 Chronic systolic (congestive) heart failure; E87.8 Other disorders of electrolyte and fluid balance, not elsewhere classified; E87.5 Hyperkalemia; I16.0 Hypertensive urgency; E11.40 Type 2 diabetes mellitus with diabetic neuropathy, unspecified; D63.1 Anemia in chronic kidney disease; E11.22 Type 2 diabetes mellitus with diabetic chronic kidney disease; E11.69 Type 2 diabetes mellitus with other specified complication; E66.01 Morbid (severe) obesity due to excess calories; E78.5 Hyperlipidemia, unspecified; I67.2 Cerebral atherosclerosis; M19.90 Unspecified osteoarthritis, unspecified site; Z20.822 Contact with and (suspected) exposure to COVID-19; Z79.82 Long term (current) use of aspirin; Z79.899 Other long term (current) drug therapy; Z82.49 Family history of ischemic heart disease and other diseases of the circulatory system; Z83.3 Family history of diabetes mellitus; Z87.891 Personal history of nicotine dependence; Z99.2 Dependence on renal dialysis; Z79.891 Long term (current) use of opiate analgesic; Z79.01 Long term (current) use of anticoagulants; Z79.4 Long term (current) use of insulin; V69.60XA Unspecified occupant of heavy transport vehicle injured in collision with unspecified motor vehicles in traffic accident, initial encounter; Y93.89 Activity, other specified; Y92.89 Other specified places as the place of occurrence of the external cause; Y99.8 Other external cause status; S69.82XA Other specified injuries of left wrist, hand and finger(s), initial encounter
CPT/HCPCS: 36415; 70450; 70551; 71045; 71250; 73100; 73120; 80048; 80053; 80061; 82962; 83036; 84100; 84443; 84484; 85025; 86706; 87426; 90935; 93306; 93886; G0378; J1815; J2405

== ENCOUNTER 2021-01-22 14:53 | Inpatient (IN) | payer MEDICARE, MEDICAID ==
[~2021-01-22] VITALS: Ht 175.3 cm; Wt 116.5 kg
[2021-01-22 16:34] LABS: Albumin 3.2 g/dL (3.4-5.0); Calcium 8.3 mg/dL (8.5-10.1); Magnesium 2.4 mg/dL (1.6-2.6)
[2021-01-22 16:39] LABS: Bilirubin, Total 1.1 mg/dL (0.2-1.0)
[2021-01-22 16:53] LABS: Potassium 5.8 mmol/L (3.5-5.1)
[2021-01-22 17:25] LABS: Hematocrit 35.7 % (41.0-53.0); Hemoglobin 12.1 g/dL (13.5-17.5); Mean Corpuscular Hemoglobin 35.2 pg (28.0-32.0); Mean Corpuscular Hgb Conc. 33.8 g/dL (32.0-36.0); Mean Corpuscular Volume 104.3 fL (80.0-100.0); Platelet Count (auto) 229 10^3/uL (140-450); Red Blood Cells 3.42 10^6/uL (4.5-5.90); Red Cell Distribution Width 19.4 % (11.8-14.3); White Blood Cell 3.9 10^3/uL (4.4-10.8)
[2021-01-22 17:30] LABS: Band Neutrophils % (manual) 0; Basophils % (manual) 0 (0.0-2.0); Blast Cells 0; Eosinophils % (manual) 0 (0-7); Metamyelocytes % 0; Myelocytes % 0; Promyelocytes % 0; Reactive Lymphocytes 0
[2021-01-22 18:44] LABS: Lymphocytes % (manual) 29 (10.0-50.0); Monocytes % (manual) 20 (0-12)
[2021-01-22] MEDS ORDERED: HYDROcodone-ACET 5/325MG TAB PO PRN (21:15)
[2021-01-22] MEDS ORDERED: ACETAMINOPHEN 325 MG TAB PO PRN (21:15)
[2021-01-22] MEDS ORDERED: MORPHINE SULFATE 4 MG/ML SYR/VIAL IV PRN (21:15)
[2021-01-22] MEDS ORDERED: DOCUSATE SOD 100 MG CAP PO PRN (21:15)
[2021-01-22] MEDS ORDERED: NITROGLYCERIN 0.4 MG SL TAB SL PRN (21:15)
[2021-01-22] MEDS ORDERED: MORPHINE SULF INJ 2 MG/ML SYRINGE 1ML IV PRN (21:15)
[2021-01-22] MEDS ORDERED: SODIUM BICARBONATE 8.4 % INJ 50ML VIAL IV ONE (21:30)
[2021-01-22] MEDS ORDERED: CALCIUM GLUC 1,000mg/50ml-NS 50 ML IV ONE ×2 (21:30→22:12)
[2021-01-22] MEDS ORDERED: DEXTROSE (50%) 50ML SYRG IV PRN (21:45)
[2021-01-22] MEDS ORDERED: GABAPENTIN 300 MG CAP PO SCH (22:00)
[2021-01-22] MEDS ORDERED: DIPHENOXYLATE W/ATROPINE 2.5 MG TAB PO PRN (22:00)
[2021-01-22] MEDS: FAMOTIDINE 20 MG TAB PO SCH (22:37)
[2021-01-22] MEDS: SEVELAMER 800 MG TAB PO SCH (22:38)
[2021-01-22] MEDS: ACCU-CHEK COMFORT CURVE STRIP VI SCH (22:38)
[2021-01-22] MEDS: InsuLIN REG 1unit/0.01ml Soln (100units/ml) SC SCH (22:38)
[2021-01-23] VITALS (9 sets, daily range): BP systolic 138–204; BP diastolic 75–91
[2021-01-23] MEDS ORDERED: CLON0.1T14 PO (05:01)
[2021-01-23] MEDS ORDERED: PARoxetine 20 MG TAB PO SCH (07:00)
[2021-01-23] MEDS: InsuLIN REG 1unit/0.01ml Soln (100units/ml) SC SCH ×4 (07:00→22:00)
[2021-01-23] MEDS: ACCU-CHEK COMFORT CURVE STRIP VI SCH ×4 (07:04→22:00)
[2021-01-23 07:25] LABS: Basophils # (auto) 0.1 10 ^3/uL (0-0.2); Basophils % (auto) 2.8 % (0.0-2.0); Eosinophils # (auto) 0.2 10 ^3/uL (0-0.8); Eosinophils % (auto) 5.2 % (0.0-7.0); Hematocrit 33.7 % (41.0-53.0); Hemoglobin 11.4 g/dL (13.5-17.5); Lymphocytes # (auto) 1.1 10 ^3/uL (0.4-5.4); Lymphocytes % (auto) 24.4 % (10.0-50.0); Mean Corpuscular Hemoglobin 34.9 pg (28.0-32.0); Mean Corpuscular Hgb Conc. 33.8 g/dL (32.0-36.0); Mean Corpuscular Volume 103.2 fL (80.0-100.0); Monocytes # (auto) 0.8 10 ^3/uL (0-1.3); Monocytes % (auto) 17.6 % (0.0-12.0); Neutrophils # (auto) 2.3 10 ^3/uL (1.6-8.6); Nucleated Red Blood Cells % 0.2 %; Platelet Count (auto) 207 10^3/uL (140-450); Red Blood Cells 3.27 10^6/uL (4.5-5.90); Red Cell Distribution Width 18.9 % (11.8-14.3); White Blood Cell 4.6 10^3/uL (4.4-10.8)
[2021-01-23 07:29] LABS: Albumin 3.1 g/dL (3.4-5.0); BUN/Creatinine Ratio 10.1; Bilirubin, Total 1.2 mg/dL (0.2-1.0); Calcium 8.4 mg/dL (8.5-10.1); Total Protein 6.6 g/dL (6.4-8.2)
[2021-01-23 07:39] LABS: Potassium 5.6 mmol/L (3.5-5.1)
[2021-01-23] MEDS: SEVELAMER 800 MG TAB PO SCH ×3 (08:00→18:10)
[2021-01-23] MEDS ORDERED: ADENOSINE 86 MG in GIVE UN-DILUTED 0 ML IV STA (11:09)
[2021-01-23] MEDS ORDERED: SODIUM CHL 0.9% 1000 ML BAG XX ONE (11:15)
[2021-01-23] MEDS ORDERED: cloNIDine HCL 0.1 MG TAB PO ONE (12:00)
[2021-01-23] MEDS: GABAPENTIN 300 MG CAP PO SCH (22:00)
[2021-01-23] MEDS: PARoxetine 20 MG TAB PO SCH (22:00)
[2021-01-23] MEDS: hydrALAZINE HCL 20 MG/ML VL IV PRN (22:45)
[2021-01-24] VITALS (7 sets, daily range): BP systolic 115–165; BP diastolic 65–85
[2021-01-24] MEDS: ONDANSETRON HCL 4 MG/2 ML VIAL IV PRN ×2 (01:15→09:34)
[2021-01-24] MEDS: InsuLIN REG 1unit/0.01ml Soln (100units/ml) SC SCH ×4 (06:39→22:00)
[2021-01-24] MEDS: ACCU-CHEK COMFORT CURVE STRIP VI SCH ×4 (06:39→22:00)
[2021-01-24] MEDS: SEVELAMER 800 MG TAB PO SCH ×3 (08:20→18:12)
[2021-01-24] MEDS: ISOSORBIDE MONONITRATE ER 60 MG TAB PO SCH (10:00)
[2021-01-24] MEDS: CARVEDILOL 3.125 MG TAB PO SCH ×2 (10:00→22:00)
[2021-01-24 11:14] LABS: BUN/Creatinine Ratio 9.8; Calcium 8.2 mg/dL (8.5-10.1); Potassium 4.9 mmol/L (3.5-5.1)
[2021-01-24] MEDS: FAMOTIDINE 20 MG TAB PO SCH (13:07)
[2021-01-24] MEDS ORDERED: MORPHINE SULF INJ 2 MG/ML SYRINGE 1ML IV PRN (16:30)
[2021-01-24] MEDS: PARoxetine 20 MG TAB PO SCH (22:00)
[2021-01-24] MEDS: GABAPENTIN 300 MG CAP PO SCH (22:00)
[2021-01-24] MEDS: traZODone HCL 50 MG TAB PO SCH (22:00)
[2021-01-25 04:41] VITALS: BP 175/80
[2021-01-25] MEDS: InsuLIN REG 1unit/0.01ml Soln (100units/ml) SC SCH ×4 (06:48→22:00)
[2021-01-25] MEDS: ACCU-CHEK COMFORT CURVE STRIP VI SCH ×4 (06:48→22:00)
[2021-01-25] MEDS: hydrALAZINE HCL 20 MG/ML VL IV PRN ×2 (06:49→11:58)
[2021-01-25] MEDS: SEVELAMER 800 MG TAB PO SCH ×3 (08:00→17:40)
[2021-01-25] MEDS: CARVEDILOL 3.125 MG TAB PO SCH ×2 (08:37→22:00)
[2021-01-25] MEDS: ISOSORBIDE MONONITRATE ER 60 MG TAB PO SCH (08:37)
[2021-01-25 09:00] VITALS: BP 197/92
[2021-01-25 09:04] LABS: BUN/Creatinine Ratio 9.4; Calcium 8.6 mg/dL (8.5-10.1); Potassium 5.3 mmol/L (3.5-5.1)
[2021-01-25 13:00] VITALS: BP 205/95
[2021-01-25 17:00] VITALS: BP 154/68
[2021-01-25 22:00] VITALS: BP 188/80
[2021-01-25] MEDS: PARoxetine 20 MG TAB PO SCH (22:00)
[2021-01-25] MEDS: traZODone HCL 50 MG TAB PO SCH (22:00)
[2021-01-25] MEDS: GABAPENTIN 300 MG CAP PO SCH (22:00)
[2021-01-26 05:00] VITALS: BP 151/73
[2021-01-26] MEDS ORDERED: SODIUM CHL 0.9% 1000 ML BAG XX ONE (07:00)
[2021-01-26] MEDS: InsuLIN REG 1unit/0.01ml Soln (100units/ml) SC SCH ×3 (07:00→17:00)
[2021-01-26] MEDS: ACCU-CHEK COMFORT CURVE STRIP VI SCH ×3 (07:00→17:37)
[2021-01-26] MEDS: SEVELAMER 800 MG TAB PO SCH ×3 (08:00→17:37)
[2021-01-26 09:00] VITALS: BP 137/51
[2021-01-26 09:58] LABS: Calcium 8.3 mg/dL (8.5-10.1)
[2021-01-26 10:11] LABS: Potassium 5.6 mmol/L (3.5-5.1)
[2021-01-26] MEDS: FAMOTIDINE 20 MG TAB PO SCH (12:13)
[2021-01-26 16:38] VITALS: BP 169/73
[2021-01-26] MEDS: CARVEDILOL 3.125 MG TAB PO SCH (17:38)
[2021-01-26] MEDS: ISOSORBIDE MONONITRATE ER 60 MG TAB PO SCH (17:38)
== END 2021-01-26 19:20 | disposition home health service (06) | DRG 280 ==
LOC: ER 14:53 → EDBD 14:53 → TELE 21:12 → TELE-CENTR 23:36
PROVIDERS: ADMIT Nurse Practitioner; ATTEND Nurse Practitioner
PROC: 05HB33Z Insertion of Infusion Device into Right Basilic Vein, Percutaneous Approach (ICD-10-PCS; principal; 2021-01-23)
PROC: B54MZZA Ultrasonography of Right Upper Extremity Veins, Guidance (ICD-10-PCS; 2021-01-23)
DX: I21.4 Non-ST elevation (NSTEMI) myocardial infarction (principal); N18.6 End stage renal disease; I50.23 Acute on chronic systolic (congestive) heart failure; I13.2 Hypertensive heart and chronic kidney disease with heart failure and with stage 5 chronic kidney disease, or end stage renal disease; E87.5 Hyperkalemia; D63.1 Anemia in chronic kidney disease; Z99.2 Dependence on renal dialysis; E11.22 Type 2 diabetes mellitus with diabetic chronic kidney disease; E66.9 Obesity, unspecified; E11.40 Type 2 diabetes mellitus with diabetic neuropathy, unspecified; E78.5 Hyperlipidemia, unspecified; E88.09 Other disorders of plasma-protein metabolism, not elsewhere classified; I20.0 Unstable angina; I25.5 Ischemic cardiomyopathy; Z20.822 Contact with and (suspected) exposure to COVID-19; Z82.49 Family history of ischemic heart disease and other diseases of the circulatory system; Z83.3 Family history of diabetes mellitus; Z68.37 Body mass index [BMI] 37.0-37.9, adult; Z90.49 Acquired absence of other specified parts of digestive tract
CPT/HCPCS: 36415; 71045; 78452; 80048; 80053; 82962; 83735; 83880; 84484; 85007; 85025; 85027; 87426; 90935; 93005; 93017; 96365; 96375; 99291; G0378; J0153; J1642; J2405

== ENCOUNTER 2021-02-04 15:50 | Inpatient (IN) | payer MEDICARE, MEDICAID ==
[~2021-02-04] VITALS: Ht 167.6 cm; Wt 102.4 kg
[~2021-02-04 15:50] MED LIST changes: -DIPH2.5T73 PO
[2021-02-04 16:58] LABS: White Blood Cell 4.1 10^3/uL (4.4-10.8)
[2021-02-04 17:00] LABS: Hematocrit 36.1 % (41.0-53.0); Mean Corpuscular Hemoglobin 34.5 pg (28.0-32.0); Mean Corpuscular Hgb Conc. 33.2 g/dL (32.0-36.0); Mean Corpuscular Volume 103.8 fL (80.0-100.0); Platelet Count (auto) 166 10^3/uL (140-450); Red Blood Cells 3.48 10^6/uL (4.5-5.90); Red Cell Distribution Width 18.1 % (11.8-14.3)
[2021-02-04 17:03] LABS: Basophils % (manual) 0 (0.0-2.0); Blast Cells 0; Metamyelocytes % 0; Myelocytes % 0; Promyelocytes % 0
[2021-02-04 17:15] LABS: Calcium 7.1 mg/dL (8.5-10.1); Magnesium 2.6 mg/dL (1.6-2.6)
[2021-02-04 17:21] LABS: BUN/Creatinine Ratio 9.2; Bilirubin, Total 1.2 mg/dL (0.2-1.0); Total Protein 6.7 g/dL (6.4-8.2)
[2021-02-04 18:10] LABS: Potassium 6.7 mmol/L (3.5-5.1)
[2021-02-04 18:23] LABS: Band Neutrophils % (manual) 1; Eosinophils % (manual) 6 (0-7); Lymphocytes % (manual) 20 (10.0-50.0); Monocytes % (manual) 17 (0-12); Reactive Lymphocytes 1
[2021-02-04] MEDS ORDERED: InsuLIN REG 1unit/0.01ml Soln (100units/ml) IV ONE (19:30)
[2021-02-04] MEDS ORDERED: DEXTROSE (50%) 50ML SYRG IV ONE (19:30)
[2021-02-04] MEDS ORDERED: CALCIUM GLUC 1,000mg/50ml-NS 50 ML IV ONE ×2 (19:30→22:15)
[2021-02-04] MEDS ORDERED: ASPirin 81 mg TAB PO ONE (19:30)
[2021-02-04 20:19] LABS: INR 1.29 (0.9-1.15); Partial Thromboplastin Time 29.9 sec (23.0-31.2)
[2021-02-04] MEDS ORDERED: MORPHINE SULF INJ 2 MG/ML SYRINGE 1ML IV PRN (21:30)
[2021-02-04] MEDS ORDERED: NITROGLYCERIN 0.4 MG SL TAB SL PRN (21:30)
[2021-02-04] MEDS ORDERED: ACETAMINOPHEN 325 MG TAB PO PRN (21:30)
[2021-02-04] MEDS ORDERED: HYDROcodone-ACET 5/325MG TAB PO PRN (21:30)
[2021-02-04] MEDS ORDERED: MORPHINE SULFATE 4 MG/ML SYR/VIAL IV PRN (21:30)
[2021-02-04] MEDS ORDERED: hydrALAZINE HCL 20 MG/ML VL IV PRN (21:45)
[2021-02-04] MEDS ORDERED: CARVEDILOL 3.125 MG TAB PO ONE (22:00)
[2021-02-04] MEDS ORDERED: SODIUM BICARBONATE 8.4 % INJ 50ML VIAL IV ONE (22:00)
[2021-02-04] MEDS ORDERED: ALBUTEROL SULF 2.5 MG/0.5ML(0.5%) NEB SOLN NEB ONE (22:15)
[2021-02-04] MEDS ORDERED: DEXTROSE 50% SYRINGE 50 ML IV ONE (22:38)
[2021-02-04] MEDS: GABAPENTIN 300 MG CAP PO SCH (22:57)
[2021-02-04] MEDS: SODIUM ZIRCONIUM CYCL 10 GM PAK PO SCH (22:57)
[2021-02-04] MEDS: FAMOTIDINE 20 MG TAB PO SCH (22:57)
[2021-02-04] MEDS: SEVELAMER 800 MG TAB PO SCH (23:30)
[2021-02-05 03:09] VITALS: BP 164/86
[2021-02-05] MEDS: SODIUM ZIRCONIUM CYCL 10 GM PAK PO SCH ×3 (05:30→21:09)
[2021-02-05] MEDS: SEVELAMER 800 MG TAB PO SCH ×3 (06:00→21:06)
[2021-02-05] MEDS: PARoxetine 20 MG TAB PO SCH (06:52)
[2021-02-05] MEDS ORDERED: SODIUM CHL 0.9% 1000 ML BAG XX ONE ×2 (07:00→10:45)
[2021-02-05 08:30] VITALS: BP 142/81
[2021-02-05] MEDS ORDERED: HEPARIN DRIP/D5W 100UNITS/ML 250 ML IV SCH (09:15)
[2021-02-05] MEDS ORDERED: HEPARIN SODIUM (PORCINE) 5000 UNITS/ML 1ML VIAL IV ONE (09:15)
[2021-02-05] MEDS ORDERED: ISOSORBIDE MONONITRATE ER 60 MG TAB PO SCH (10:00)
[2021-02-05] MEDS ORDERED: ASPirin 81 mg TAB PO SCH (10:00)
[2021-02-05] MEDS ORDERED: SODIUM ZIRCONIUM CYCL 10 GM PAK PO SCH (10:00)
[2021-02-05 10:39] LABS: INR 1.4 (0.9-1.15); Partial Thromboplastin Time 22.8 sec (23.0-31.2)
[2021-02-05] MEDS: HEPARIN DRIP/D5W 100UNITS/ML 250 ML IV SCH ×2 (10:40→18:04)
[2021-02-05] MEDS: CARVEDILOL 3.125 MG TAB PO SCH ×2 (10:43→21:07)
[2021-02-05 12:30] VITALS: BP 166/75
[2021-02-05 14:54] LABS: Mean Corpuscular Volume 103.6 fL (80.0-100.0); White Blood Cell 4.1 10^3/uL (4.4-10.8)
[2021-02-05 14:56] LABS: Hematocrit 33.4 % (41.0-53.0); Mean Corpuscular Hgb Conc. 32.8 g/dL (32.0-36.0); Platelet Count (auto) 154 10^3/uL (140-450); Red Blood Cells 3.22 10^6/uL (4.5-5.90); Red Cell Distribution Width 17.9 % (11.8-14.3)
[2021-02-05 15:26] LABS: Band Neutrophils % (manual) 0; Basophils % (manual) 0 (0.0-2.0); Blast Cells 0; Metamyelocytes % 0; Myelocytes % 0; Promyelocytes % 0; Reactive Lymphocytes 0
[2021-02-05 17:00] VITALS: BP 135/67
[2021-02-05 17:57] LABS: INR 1.37 (0.9-1.15); Partial Thromboplastin Time 50.1 sec (23.0-31.2)
[2021-02-05 18:20] LABS: Anion Gap 15 (5-15); BUN/Creatinine Ratio 9.1; Carbon Dioxide 21 mmol/L (21-32); Chloride 99 mmol/L (98-107); GFR African American 8 mL/min; GFR Non-African American 6 mL/min; Glucose 144 mg/dL (74-106); Potassium 5.5 mmol/L (3.5-5.1); Sodium 135 mmol/L (136-145)
[2021-02-05 18:21] LABS: Alanine Aminotransferase 20 U/L (16-61); Albumin 2.7 g/dL (3.4-5.0); Alkaline Phosphatase 200 U/L (45-117); Aspartate Aminotransferase 22 U/L (15-37); Bilirubin, Total 1.2 mg/dL (0.2-1.0); Calcium 7.1 mg/dL (8.5-10.1)
[2021-02-05 18:24] LABS: Blood Urea Nitrogen 80 mg/dL (7-18)
[2021-02-05 19:09] LABS: Eosinophils % (manual) 10 (0-7); Lymphocytes % (manual) 14 (10.0-50.0); Monocytes % (manual) 12 (0-12)
[2021-02-05] MEDS: FAMOTIDINE 20 MG TAB PO SCH (21:08)
[2021-02-05] MEDS: GABAPENTIN 300 MG CAP PO SCH (21:09)
[2021-02-05 22:00] VITALS: BP 141/70
[2021-02-05] MEDS ORDERED: ATORVASTATIN 20 MG TAB PO SCH (22:00)
[2021-02-06 00:13] LABS: INR 1.34 (0.9-1.15); Partial Thromboplastin Time 33.9 sec (23.0-31.2)
[2021-02-06] MEDS ORDERED: HEPARIN DRIP/D5W 100UNITS/ML 250 ML IV SCH (03:00)
[2021-02-06 05:22] VITALS: BP 144/115
[2021-02-06] MEDS: SODIUM ZIRCONIUM CYCL 10 GM PAK PO SCH (06:00)
[2021-02-06] MEDS: SEVELAMER 800 MG TAB PO SCH (06:00)
[2021-02-06 06:16] LABS: Hemoglobin 10.3 g/dL (13.5-17.5); Mean Corpuscular Volume 104.6 fL (80.0-100.0); White Blood Cell 4.9 10^3/uL (4.4-10.8)
[2021-02-06 06:20] LABS: Hematocrit 30.3 % (41.0-53.0); Mean Corpuscular Hemoglobin 35.6 pg (28.0-32.0); Mean Corpuscular Hgb Conc. 34.1 g/dL (32.0-36.0); Platelet Count (auto) 147 10^3/uL (140-450); Red Cell Distribution Width 17.9 % (11.8-14.3)
[2021-02-06 06:26] LABS: Basophils % (manual) 0 (0.0-2.0); Blast Cells 0; Metamyelocytes % 0; Myelocytes % 0; Promyelocytes % 0; Reactive Lymphocytes 0
[2021-02-06 06:36] LABS: INR 1.35 (0.9-1.15)
[2021-02-06] MEDS: PARoxetine 20 MG TAB PO SCH (06:37)
[2021-02-06 06:58] LABS: Partial Thromboplastin Time 88.5 sec (23.0-31.2)
[2021-02-06 06:59] LABS: Albumin 2.8 g/dL (3.4-5.0); BUN/Creatinine Ratio 9.8; Bilirubin, Total 1.1 mg/dL (0.2-1.0); Calcium 6.9 mg/dL (8.5-10.1); Phosphorus 8.6 mg/dL (2.5-4.90); Total Protein 5.9 g/dL (6.4-8.2)
[2021-02-06 07:17] LABS: Potassium 5.6 mmol/L (3.5-5.1)
[2021-02-06] MEDS ORDERED: TRANEXAMIC ACID 20 ML ONE (08:33)
[2021-02-06 08:55] LABS: Band Neutrophils % (manual) 2; Eosinophils % (manual) 4 (0-7); Lymphocytes % (manual) 28 (10.0-50.0); Monocytes % (manual) 11 (0-12)
== END 2021-02-06 07:50 | disposition left against medical advice (07) | DRG 640 ==
LOC: ER 15:50 → TELE 21:20 → TELE-WESTW 23:23
PROVIDERS: ADMIT Nurse Practitioner; ATTEND Nurse Practitioner
PROC: 5A1D70Z Performance of Urinary Filtration, Intermittent, Less than 6 Hours Per Day (ICD-10-PCS; principal; 2021-02-05)
DX: E87.5 Hyperkalemia (principal); N18.6 End stage renal disease; I25.110 Atherosclerotic heart disease of native coronary artery with unstable angina pectoris; I13.2 Hypertensive heart and chronic kidney disease with heart failure and with stage 5 chronic kidney disease, or end stage renal disease; I50.20 Unspecified systolic (congestive) heart failure; E11.649 Type 2 diabetes mellitus with hypoglycemia without coma; D63.1 Anemia in chronic kidney disease; Z20.822 Contact with and (suspected) exposure to COVID-19; Z53.29 Procedure and treatment not carried out because of patient's decision for other reasons; Z68.35 Body mass index [BMI] 35.0-35.9, adult; E11.22 Type 2 diabetes mellitus with diabetic chronic kidney disease; E11.40 Type 2 diabetes mellitus with diabetic neuropathy, unspecified; E78.5 Hyperlipidemia, unspecified; E66.01 Morbid (severe) obesity due to excess calories; E88.09 Other disorders of plasma-protein metabolism, not elsewhere classified; Z82.49 Family history of ischemic heart disease and other diseases of the circulatory system; Z83.3 Family history of diabetes mellitus; Z86.16 Personal history of COVID-19; Z99.2 Dependence on renal dialysis; Z91.19 Patient's noncompliance with other medical treatment and regimen; Z90.49 Acquired absence of other specified parts of digestive tract; Z89.421 Acquired absence of other right toe(s); Z91.81 History of falling
CPT/HCPCS: 36415; 71045; 80053; 82962; 83735; 83880; 84100; 84132; 84484; 85007; 85027; 85610; 85730; 87081; 87426; 90935; 93005; 93306; 94640; 96365; 96375; G0378; J1815

== ENCOUNTER 2021-02-07 16:54 | Inpatient (IN) | payer MEDICARE, MEDICAID ==
[~2021-02-07] VITALS: Ht 177.8 cm; Wt 95.3 kg
[2021-02-07 18:20] LABS: Hemoglobin 9.9 g/dL (13.5-17.5); Mean Corpuscular Hemoglobin 35.1 pg (28.0-32.0); Mean Corpuscular Hgb Conc. 34.1 g/dL (32.0-36.0); Mean Corpuscular Volume 103.1 fL (80.0-100.0); Red Blood Cells 2.81 10^6/uL (4.5-5.90); Red Cell Distribution Width 17.5 % (11.8-14.3); White Blood Cell 5.6 10^3/uL (4.4-10.8)
[2021-02-07 18:24] LABS: Band Neutrophils % (manual) 0; Basophils % (manual) 0 (0.0-2.0); Blast Cells 0; Eosinophils % (manual) 0 (0-7); Metamyelocytes % 0; Myelocytes % 0; Promyelocytes % 0; Reactive Lymphocytes 0
[2021-02-07 18:27] LABS: Albumin 2.9 g/dL (3.4-5.0); Calcium 6.5 mg/dL (8.5-10.1)
[2021-02-07 18:33] LABS: Bilirubin, Total 0.9 mg/dL (0.2-1.0); Total Protein 6.2 g/dL (6.4-8.2)
[2021-02-07 18:43] LABS: Potassium 6.3 mmol/L (3.5-5.1)
[2021-02-07] MEDS ORDERED: SODIUM BICARBONATE 8.4% INJ 50ML SYRINGE IV ONE (19:00)
[2021-02-07] MEDS ORDERED: InsuLIN REG 1unit/0.01ml Soln (100units/ml) IV ONE (19:00)
[2021-02-07] MEDS ORDERED: CALCIUM GLUC 1,000mg/50ml-NS 50 ML IV ONE (19:00)
[2021-02-07] MEDS ORDERED: DEXTROSE (50%) 50ML SYRG IV ONE (19:00)
[2021-02-07 19:14] LABS: Lymphocytes % (manual) 15 (10.0-50.0); Monocytes % (manual) 23 (0-12)
[2021-02-07] MEDS ORDERED: NITROGLYCERIN 0.4 MG SL TAB SL PRN (21:15)
[2021-02-07] MEDS ORDERED: ONDANSETRON HCL 4 MG/2 ML VIAL IV PRN (21:15)
[2021-02-07] MEDS ORDERED: SODIUM ZIRCONIUM CYCL 10 GM PAK PO ONE (21:15)
[2021-02-07] MEDS ORDERED: TEMAZEPAM 15 MG CAP PO PRN (21:15)
[2021-02-07] MEDS ORDERED: ACETAMINOPHEN 325 MG TAB PO PRN (21:15)
[2021-02-07] MEDS ORDERED: MORPHINE SULFATE INJECTION 2 MG/ML SYRG IV PRN (21:15)
[2021-02-07 22:00] VITALS: BP 185/84
[2021-02-07] MEDS: ATORVASTATIN 20 MG TAB PO SCH (22:13)
[2021-02-07] MEDS: CARVEDILOL 3.125 MG TAB PO SCH (22:29)
[2021-02-08] MEDS ORDERED: SODIUM ZIRCONIUM CYCL 10 GM PAK PO ONE (02:45)
[2021-02-08 05:00] VITALS: BP 183/73
[2021-02-08] MEDS: cloNIDine HCL 0.1 MG TAB PO PRN ×2 (05:17→16:46)
[2021-02-08 05:42] LABS: Hemoglobin 10.6 g/dL (13.5-17.5); Red Cell Distribution Width 18.2 % (11.8-14.3)
[2021-02-08 05:44] LABS: Hematocrit 31.5 % (41.0-53.0); Mean Corpuscular Hemoglobin 35.3 pg (28.0-32.0); Mean Corpuscular Hgb Conc. 33.7 g/dL (32.0-36.0); Mean Corpuscular Volume 104.9 fL (80.0-100.0); Red Blood Cells 3.01 10^6/uL (4.5-5.90)
[2021-02-08 05:48] LABS: Band Neutrophils % (manual) 0; Basophils % (manual) 0 (0.0-2.0); Blast Cells 0; Metamyelocytes % 0; Myelocytes % 0; Promyelocytes % 0; Reactive Lymphocytes 0
[2021-02-08 05:56] LABS: Calcium 6.8 mg/dL (8.5-10.1)
[2021-02-08 06:01] LABS: BUN/Creatinine Ratio 10.1
[2021-02-08 06:16] LABS: Potassium 5.8 mmol/L (3.5-5.1)
[2021-02-08] MEDS ORDERED: SODIUM CHL 0.9% 1000 ML BAG XX ONE (07:00)
[2021-02-08 07:28] LABS: Eosinophils % (manual) 6 (0-7); Lymphocytes % (manual) 21 (10.0-50.0); Monocytes % (manual) 26 (0-12)
[2021-02-08 08:00] VITALS: BP 176/91
[2021-02-08] MEDS: SEVELAMER 800 MG TAB PO SCH ×3 (08:00→18:43)
[2021-02-08] MEDS: GABAPENTIN 300 MG CAP PO SCH (10:00)
[2021-02-08] MEDS: ASPirin 81 mg TAB PO SCH (10:35)
[2021-02-08] MEDS: PANTOPRAZOLE 40 MG TAB PO SCH (10:36)
[2021-02-08] MEDS: CARVEDILOL 3.125 MG TAB PO SCH ×2 (10:36→22:13)
[2021-02-08 12:30] VITALS: BP 160/82
[2021-02-08] MEDS ORDERED: HYDROcodone-ACET 5/325MG TAB PO PRN ×2 (12:30)
[2021-02-08 16:52] VITALS: BP 167/90
[2021-02-08] MEDS ORDERED: HYDROmorphone HCL 2 MG TAB PO PRN (18:00)
[2021-02-08] MEDS: ATORVASTATIN 20 MG TAB PO SCH (22:13)
[2021-02-08 22:45] VITALS: BP 154/75
[2021-02-09 05:00] VITALS: BP 172/68
[2021-02-09] MEDS: cloNIDine HCL 0.1 MG TAB PO PRN (05:55)
[2021-02-09 07:03] LABS: Hematocrit 30.8 % (41.0-53.0); White Blood Cell 4.8 10^3/uL (4.4-10.8)
[2021-02-09 07:07] LABS: Hemoglobin 10.2 g/dL (13.5-17.5); Mean Corpuscular Hemoglobin 34.5 pg (28.0-32.0); Mean Corpuscular Hgb Conc. 33.1 g/dL (32.0-36.0); Mean Corpuscular Volume 104.4 fL (80.0-100.0); Red Blood Cells 2.95 10^6/uL (4.5-5.90); Red Cell Distribution Width 17.5 % (11.8-14.3)
[2021-02-09 07:10] LABS: Potassium 5.5 mmol/L (3.5-5.1)
[2021-02-09 07:16] LABS: Band Neutrophils % (manual) 0; Basophils % (manual) 0 (0.0-2.0); Blast Cells 0; Metamyelocytes % 0; Myelocytes % 0; Promyelocytes % 0; Reactive Lymphocytes 0
[2021-02-09 07:18] LABS: Albumin 2.7 g/dL (3.4-5.0); BUN/Creatinine Ratio 9.3; Bilirubin, Total 0.9 mg/dL (0.2-1.0); Calcium 6.9 mg/dL (8.5-10.1)
[2021-02-09 08:13] LABS: Eosinophils % (manual) 9 (0-7); Lymphocytes % (manual) 19 (10.0-50.0); Monocytes % (manual) 11 (0-12)
[2021-02-09] MEDS: SEVELAMER 800 MG TAB PO SCH ×4 (08:33→19:29)
[2021-02-09] MEDS ORDERED: SODIUM ZIRCONIUM CYCL 10 GM PAK PO ONE (09:00)
[2021-02-09] MEDS: PANTOPRAZOLE 40 MG TAB PO SCH (10:31)
[2021-02-09] MEDS: ASPirin 81 mg TAB PO SCH (10:31)
[2021-02-09] MEDS: amLODIPine BESYLATE 5 MG TAB PO SCH (10:31)
[2021-02-09] MEDS: CARVEDILOL 3.125 MG TAB PO SCH ×3 (10:32→22:32)
[2021-02-09] MEDS: GABAPENTIN 300 MG CAP PO SCH (10:32)
[2021-02-09] MEDS ORDERED: HALOPERIDOL LACTATE 5 MG/ML INJ VIAL IM PRN (17:45)
[2021-02-09] MEDS: QUEtiapine FUMARATE 25 MG TAB PO SCH (19:30)
[2021-02-09 21:30] VITALS: BP 126/78
[2021-02-09] MEDS: ATORVASTATIN 20 MG TAB PO SCH (21:48)
[2021-02-10 05:00] VITALS: BP 123/71
[2021-02-10] MEDS ORDERED: SODIUM CHL 0.9% 1000 ML BAG XX ONE (07:00)
[2021-02-10 09:00] VITALS: BP 184/77
[2021-02-10] MEDS: ASPirin 81 mg TAB PO SCH (09:33)
[2021-02-10] MEDS: SEVELAMER 800 MG TAB PO SCH ×3 (09:33→18:21)
[2021-02-10] MEDS: GABAPENTIN 300 MG CAP PO SCH (09:35)
[2021-02-10] MEDS: PANTOPRAZOLE 40 MG TAB PO SCH (09:35)
[2021-02-10] MEDS: amLODIPine BESYLATE 5 MG TAB PO SCH (09:35)
[2021-02-10] MEDS: CARVEDILOL 3.125 MG TAB PO SCH ×2 (09:35→22:48)
[2021-02-10] MEDS: QUEtiapine FUMARATE 25 MG TAB PO SCH ×2 (09:36→22:48)
[2021-02-10 13:00] VITALS: BP 149/82
[2021-02-10 17:00] VITALS: BP 168/73
[2021-02-10] MEDS ORDERED: HALOPERIDOL LACTATE 5 MG/ML INJ VIAL IM PRN (20:45)
[2021-02-10] MEDS ORDERED: EPOETIN ALFA-EPBX 10,000 UNIT/1ML VIAL SC ONE (21:00)
[2021-02-10 22:00] VITALS: BP 94/60
[2021-02-10] MEDS: ATORVASTATIN 20 MG TAB PO SCH (22:48)
[2021-02-11] VITALS (15 sets, daily range): BP systolic 93–186; BP diastolic 36–88
[2021-02-11] MEDS: SEVELAMER 800 MG TAB PO SCH ×3 (08:00→18:00)
[2021-02-11] MEDS: ASPirin 81 mg TAB PO SCH (09:29)
[2021-02-11] MEDS: CARVEDILOL 3.125 MG TAB PO SCH ×3 (09:30→22:00)
[2021-02-11] MEDS: PANTOPRAZOLE 40 MG TAB PO SCH (09:30)
[2021-02-11] MEDS: QUEtiapine FUMARATE 25 MG TAB PO SCH ×3 (09:30→22:00)
[2021-02-11] MEDS: GABAPENTIN 300 MG CAP PO SCH (09:30)
[2021-02-11] MEDS: amLODIPine BESYLATE 5 MG TAB PO SCH ×2 (09:30→10:36)
[2021-02-11 10:26] LABS: Basophils # (auto) 0.1 10 ^3/uL (0-0.2); Eosinophils # (auto) 0.2 10 ^3/uL (0-0.8); Neutrophils # (auto) 3.6 10 ^3/uL (1.6-8.6)
[2021-02-11 10:28] LABS: Hematocrit 31.4 % (41.0-53.0); Hemoglobin 10.5 g/dL (13.5-17.5); Mean Corpuscular Hemoglobin 34.9 pg (28.0-32.0); Mean Corpuscular Hgb Conc. 33.4 g/dL (32.0-36.0); Mean Corpuscular Volume 104.5 fL (80.0-100.0); Red Cell Distribution Width 17.4 % (11.8-14.3); White Blood Cell 5.5 10^3/uL (4.4-10.8)
[2021-02-11 10:31] LABS: Lymphocytes % (auto) 12.6 % (10.0-50.0); Monocytes % (auto) 17.4 % (0.0-12.0); Neutrophils % (auto) 66.6 % (37.0-80.0)
[2021-02-11 10:32] LABS: Lymphocytes # (auto) 0.7 10 ^3/uL (0.4-5.4)
[2021-02-11 10:36] LABS: Albumin 2.8 g/dL (3.4-5.0); Calcium 7.4 mg/dL (8.5-10.1); Potassium 4.7 mmol/L (3.5-5.1)
[2021-02-11 10:39] LABS: BUN/Creatinine Ratio 8.3; Bilirubin, Total 1.1 mg/dL (0.2-1.0); Total Protein 6.4 g/dL (6.4-8.2)
[2021-02-11] MEDS: cloNIDine HCL 0.1 MG TAB PO PRN (15:37)
[2021-02-11] MEDS ORDERED: ROCURONIUM 10MG/ML 10ML VIAL IV ONE (17:42)
[2021-02-11] MEDS ORDERED: MIDAZOLAM DRIP 50 mg/50mL 50 ML IV ONE (17:42)
[2021-02-11] MEDS ORDERED: ETOMIDATE (2MG/ML) 20ML VIAL IV ONE (17:42)
[2021-02-11] MEDS ORDERED: PROPOFOL 100 ML IV ONE (17:43)
[2021-02-11] MEDS ORDERED: MIDAZOLAM DRIP 50 mg/50mL 50 ML IV SCH (19:00)
[2021-02-11] MEDS ORDERED: PROPOFOL 100 ML IV SCH (19:00)
[2021-02-11 20:23] LABS: Mean Corpuscular Hemoglobin 35.1 pg (28.0-32.0)
[2021-02-11 20:24] LABS: Hematocrit 29.9 % (41.0-53.0); Mean Corpuscular Hgb Conc. 33.4 g/dL (32.0-36.0); Mean Corpuscular Volume 105.2 fL (80.0-100.0); Red Blood Cells 2.85 10^6/uL (4.5-5.90); Red Cell Distribution Width 17.5 % (11.8-14.3); White Blood Cell 5.3 10^3/uL (4.4-10.8)
[2021-02-11 20:31] LABS: Albumin 2.6 g/dL (3.4-5.0); Calcium 7.2 mg/dL (8.5-10.1); Potassium 4.7 mmol/L (3.5-5.1)
[2021-02-11 20:32] LABS: Band Neutrophils % (manual) 0; Basophils % (manual) 0 (0.0-2.0); Blast Cells 0; Metamyelocytes % 0; Myelocytes % 0; Promyelocytes % 0; Reactive Lymphocytes 0
[2021-02-11 20:38] LABS: INR 1.28 (0.9-1.15)
[2021-02-11 21:04] LABS: BUN/Creatinine Ratio 8.1; Bilirubin, Total 1.2 mg/dL (0.2-1.0); Total Protein 6.1 g/dL (6.4-8.2)
[2021-02-11 21:30] LABS: Eosinophils % (manual) 3 (0-7); Lymphocytes % (manual) 10 (10.0-50.0); Monocytes % (manual) 19 (0-12)
[2021-02-11] MEDS: ATORVASTATIN 20 MG TAB PO SCH (22:00)
== END 2021-02-11 21:40 | disposition short-term general hospital (02) | DRG 64 ==
LOC: ER 16:54 → EDBD 16:54 → TELE 21:07 → TELE-CENTR 21:56 → ICU WEST 02-11 17:01
PROVIDERS: ADMIT Nurse Practitioner; ATTEND Internal Medicine
PROC: 5A1D70Z Performance of Urinary Filtration, Intermittent, Less than 6 Hours Per Day (ICD-10-PCS; principal; 2021-02-08)
PROC: 5A1D70Z Performance of Urinary Filtration, Intermittent, Less than 6 Hours Per Day (ICD-10-PCS; 2021-02-10)
PROC: 06HM33Z Insertion of Infusion Device into Right Femoral Vein, Percutaneous Approach (ICD-10-PCS; 2021-02-11)
PROC: B54BZZA Ultrasonography of Right Lower Extremity Veins, Guidance (ICD-10-PCS; 2021-02-11)
PROC: 5A1935Z Respiratory Ventilation, Less than 24 Consecutive Hours (ICD-10-PCS; 2021-02-11)
PROC: 0BH17EZ Insertion of Endotracheal Airway into Trachea, Via Natural or Artificial Opening (ICD-10-PCS; 2021-02-11)
DX: I62.01 Nontraumatic acute subdural hemorrhage (principal); G93.41 Metabolic encephalopathy; I50.23 Acute on chronic systolic (congestive) heart failure; N18.6 End stage renal disease; E43 Unspecified severe protein-calorie malnutrition; J96.01 Acute respiratory failure with hypoxia; I21.4 Non-ST elevation (NSTEMI) myocardial infarction; I13.2 Hypertensive heart and chronic kidney disease with heart failure and with stage 5 chronic kidney disease, or end stage renal disease; N17.9 Acute kidney failure, unspecified; F05 Delirium due to known physiological condition; E87.5 Hyperkalemia; I62.03 Nontraumatic chronic subdural hemorrhage; Z20.822 Contact with and (suspected) exposure to COVID-19; E66.01 Morbid (severe) obesity due to excess calories; R47.81 Slurred speech; D63.1 Anemia in chronic kidney disease; E11.40 Type 2 diabetes mellitus with diabetic neuropathy, unspecified; E11.22 Type 2 diabetes mellitus with diabetic chronic kidney disease; E78.5 Hyperlipidemia, unspecified; Z79.4 Long term (current) use of insulin; Z79.82 Long term (current) use of aspirin; Z99.2 Dependence on renal dialysis; Z68.30 Body mass index [BMI] 30.0-30.9, adult; Z79.899 Other long term (current) drug therapy; Z82.49 Family history of ischemic heart disease and other diseases of the circulatory system; Z83.3 Family history of diabetes mellitus; Z90.49 Acquired absence of other specified parts of digestive tract
CPT/HCPCS: 36415; 36600; 70450; 71045; 80048; 80053; 82805; 82962; 83735; 84132; 84484; 85007; 85025; 85027; 85610; 85652; 85730; 86141; 87040; 87070; 87077; 87081; 87186; 87205; 87426; 90935; 93005; 93886; 94002; 96365; 96375; G0378; J1642; J1815; J2250; J2704